=== PATIENT | female | born 1990 | race Caucasian/White ===

== ENCOUNTER 2024-02-13 13:21 | Inpatient (IN) | payer OTHER, SELFPAY ==
[2024-02-13 13:40] VITALS: BP 109/60; PULSE 86; RESP 12; TEMP 36.4; O2SAT 98
[2024-02-13 14:41] VITALS: BMI 21.0
--- NOTE | 2024-02-13 15:00 | PC.ADMIT ---
34 y/o female admitted to at 1335 on a CV from [facility] for depression and SI. Pt arrived to [facility] on 02/11 with her boyfriend with c/o of being cold, unhoused, and seeking fpc assistance. ED reported both appeared under the influence. Pt was treated for a laceration to left forearm, which pt initially stated she unintentional sustained after a hunting knife slipped while opening a package. Four steri strips were placed and pt started on Keflex. ED noted some somnolence and PA ordered a chest xray, however pt declined. Pt and her boyfriend were then discharged from ED. However pt then returned later in evening without her boyfriend requesting the chest xray and c/o ongoing SOB after being treated last year for pneumonia. Chest xray unremarkable. Pt then began to endorse SI and stated that laceration to left forearm may have been intentional. Pt has history of SIB with past cutting behaviors. Pt stated that she wanted help for her depression and self harm urges. Pt stated that she stopped taking her medications around ten days ago, had been abusing substances regularly, and had self harm thoughts for past several days. When pt arrived to , pt appeared sedated and had difficulty staying awake to answer questions. Pt reported she was tired from Cocaine. Pt also noted to have restarted all of her medications. Pt endorsed passive SI but denied active urges to harm self. Pt denied HI/AVH. Safety check showed numerous scars on bilateral arms from past cutting. Dressing removed from left forearm. Four steri strips intact and covered with new non-stick dressing and tape. Pt's bilateral hands and feet appeared edematous. Pt denied IV drug use, but stated I've been out in the cold. Pt reported that she consumed a sleeve a day of vodka and used Cocaine regularly. Utox positive for Cocaine, Benzodiazepine, and Buprenorphine. Pt has prescriptions that include Klonopin and Suboxone. Pt placed on CIWA protocol. Pt is a cigarette smoker and requested NRT. Pt declined Influenza vaccine. Pt placed on 15 minute checks.
[2024-02-13] MEDS: Acetaminophen 325 MG TABLET 650 MG PO (16:53)
[2024-02-13] MEDS: Gabapentin 400 MG CAPSULE 800 MG PO (16:53)
[2024-02-13] MEDS: Nicotine 21 MG PATCH.TD24 TRANSDERMA (16:53)
[2024-02-13] MEDS: cephALEXin 500 MG CAPSULE PO ×2 (16:53→21:48)
[2024-02-13 19:00] VITALS: BP 105/60; PULSE 55; RESP 12; TEMP 36.6; O2SAT 97
[2024-02-13 20:00] VITALS: BP 105/60; PULSE 55; TEMP 36.4; O2SAT 97
[2024-02-13] MEDS: Gabapentin 300 MG CAPSULE 600 MG PO (21:48)
[2024-02-14] VITALS (7 sets, daily range): BP systolic 97–126; BP diastolic 58–89; PULSE 62–123; RESP 16–17; TEMP 36.3–36.6; O2SAT 92–99
[2024-02-14] MEDS: LORazepam 1 MG TABLET PO ×5 (00:52→21:12)
[2024-02-14] MEDS: Acetaminophen 325 MG TABLET 650 MG PO ×2 (00:52→21:11)
[2024-02-14] MEDS: Nicotine 21 MG PATCH.TD24 TRANSDERMA (09:09)
[2024-02-14] MEDS: Topiramate 25 MG TABLET 50 MG PO (09:10)
[2024-02-14] MEDS: Gabapentin 300 MG CAPSULE 600 MG PO ×4 (09:10→21:12)
[2024-02-14] MEDS: Amphetamine Mixed Salts 20 MG TABLET PO ×2 (09:11→14:28)
[2024-02-14] MEDS: Lurasidone HCl 40 MG TABLET 120 MG PO (09:11)
[2024-02-14] MEDS: cephALEXin 500 MG CAPSULE PO ×4 (09:11→21:12)
[2024-02-14] MEDS: OLANZapine 5 MG TABLET PO (09:11)
[2024-02-14] MEDS: hydrOXYzine HCL 25 MG TABLET PO ×2 (09:16→15:55)
[2024-02-14] MEDS: cloNIDine HCL 0.2 MG TABLET PO ×3 (09:16→21:14)
[2024-02-14] MEDS: Buprenorphine/Naloxone 8/2 mg FILM 3 FILM BUCCAL (09:37)
--- NOTE | 2024-02-14 09:42 | P.HPPS_ITS ---
HPI Date of Service: 02/14/24 Chief Complaint: Decompensation Sources of Information: patient interviewed, chart reviewed and crisis/core team assessment reviewed HPI Subjective Notes: Knapp Warning, Conditional Voluntary and 3 Day Narrative: Patient is a 34-year-old female with history of depression, anxiety, PTSD, polysubstance abuse using cocaine, opiates and alcohol who presents for self- inflicted, superficial laceration to left arm due to depression, SI in the face of being off medications for 10 days, polysubstance abuse and homelessness. Patient is somewhat a limited historian due to being sedated having been restarted on all her medication in the ED, several of which are sedating. Patient reports that she and her boyfriend live in a tent; they came down to [place] to meet a mutual friend to have some fun and plan to stay at his house but got ; they ended up [place], trying to find a way to have some fun but ended up homeless, cold. She reports that she was off her medications for 10 days, having left her medications in the tent and on the street with her boyfriend, using cocaine and heroin, IV; she says she drinks 1-2 sleeves of vodka a day, she is not sure if she has ever had withdrawal seizures; she told the nurse that she was trading sex for drugs. Patient reports that it was so cold and so scary I just could not deal with it... I figured felt was going to anyway might as well just kill myself. and cut her arm; she self presented to the hospital. Patient appears to be now back on outpatient regimen and that being off Latuda contributed a lot to her depression; communications writer explained will be lowering doses due to her current sedation (though sedated throughout the day, patient has also been up in/out of her room, eating meals). She denies AVH; endorses history of possibly manic episodes during which time she is talking a lot and her mind is racing, needing less sleep, but they only seem to last for 2 days. Patient would like help getting into a program. Past Psychiatric History: History of psychiatric admissions Medical Evaluation Reviewed: Hospitalist Monse Pending COUNT INCLUDES [facility] Medical History Alcohol use disorder Opioid use Cocaine use disorder PTSD (post-traumatic stress disorder) MDD (major depressive disorder), recurrent severe, without psychosis Homeless Diagnostics Vital Signs (24Hr): Vital Signs - 24 hr 02/13/24 13:40 02/13/24 19:00 02/13/24 20:00 Temperature 97.6 F 97.8 F 97.5 F Pulse Rate 86 55 55 Respiratory Rate 12 12 Blood Pressure 109/60 105/60 105/60 Pulse Oximetry 98 97 97 Oxygen Delivery Method Room Air Room Air Room Air 02/14/24 00:05 02/14/24 04:05 02/14/24 08:41 Temperature 97.8 F 97.9 F 97.4 F Pulse Rate 62 86 94 Respiratory Rate 17 Blood Pressure 97/67 114/76 101/60 Pulse Oximetry 92 99 99 Oxygen Delivery Method Room Air Room Air Room Air BMI result Body Mass Index 21.0 Labs 02/14/24 11:28 Meds/Allergies Meds Home Medications ?Medication ?Instructions ?Recorded ?Confirmed ?Type buprenorphine 8 mg-naloxone 2 mg 3 film buccal DAILY 02/13/24 02/13/24 History sublingual film (Suboxone) cephalexin 500 mg capsule 500 mg PO QID 02/13/24 02/13/24 History clonazepam 0.5 mg disintegrating 0.5 mg PO BID 02/13/24 02/13/24 History tablet clonidine HCl 0.2 mg tablet 0.2 mg TID PRN Anxiety 02/13/24 02/13/24 History dextroamphetamine-amphetamine 20 20 mg PO BID 02/13/24 02/13/24 History mg tablet (Adderall) gabapentin 800 mg tablet 800 mg QID 02/13/24 02/13/24 History lurasidone 120 mg tablet (Latuda) 120 mg PO DAILY 02/13/24 02/13/24 History olanzapine 5 mg tablet 5 mg PO DAILY 02/13/24 02/13/24 History topiramate 50 mg tablet (Topamax) 50 mg PO DAILY 02/13/24 02/13/24 History Allergies Allergies Allergy/AdvReac Type Severity Reaction Status Date / Time No Known Allergies Allergy Verified 02/13/24 14:42 Mental Status Exam Mental Status Exam Narrative: Pt is drowsy but able to be woken and then alert and oriented; behavior is drowsy, not uncooperative but with limited participation in interview; calm; patient is not in distress; dressed in casual attire, disheveled; mood is described as depressed...anxious and affect congruent; eye contact limited; Speech is soft, slowed; psychomotor retardation present; thought process is concrete, goal directed; Thought content is on tx; no delusional thinking expressed; intermittent SI; no HI. Denies AVH; does not appear to be internally preoccupied Patients insight and judgment impaired Assessment & Plan Assessment & Plan (1) MDD (major depressive disorder), recurrent severe, without psychosis: Status: Acute Code(s): F33.2 - Major depressive disorder, recurrent severe without psychotic features (2) PTSD (post-traumatic stress disorder): Status: Acute Code(s): F43.10 - Post-traumatic stress disorder, unspecified (3) Cocaine use disorder: Status: Acute Code(s): F14.10 - Cocaine abuse, uncomplicated (4) Opioid use: Status: Acute Code(s): F11.90 - Opioid use, unspecified, uncomplicated (5) Alcohol use disorder: Status: Acute Code(s): F10.90 - Alcohol use, unspecified, uncomplicated (6) Homeless: Status: Acute Code(s): Z59.00 - Homelessness unspecified Plan Patient is a 34-year-old female with history of depression, anxiety, PTSD, polysubstance abuse using cocaine, opiates and alcohol who presents for self- inflicted, superficial laceration to left arm due to depression, SI in the face of being off medications for 10 days, polysubstance abuse and homelessness. Patient is somewhat a limited historian due to being sedated having been restarted on all her medication in the ED, several of which are sedating. Patient reports that she and her boyfriend live in a tent; they came down to [place] to meet a mutual friend to have some fun and plan to stay at his house but got ; they ended up [place], trying to find a way to have some fun but ended up homeless, cold. She reports that she was off her medications for 10 days, having left her medications in the tent and on the street with her boyfriend, using cocaine and heroin, IV; she says she drinks 1-2 sleeves of vodka a day, she is not sure if she has ever had withdrawal seizures; she told the nurse that she was trading sex for drugs. Patient reports that it was so cold and so scary I just could not deal with it... I figured felt was going to anyway might as well just kill myself. and cut her arm; she self presented to the hospital. Patient appears to be now back on outpatient regimen and that being off Latuda contributed a lot to her depression; communications writer explained will be lowering doses due to her current sedation (though sedated throughout the day, patient has also been up in/out of her room, eating meals). She denies AVH; endorses history of possibly manic episodes during which time she is talking a lot and her mind is racing, needing less sleep, but they only seem to last for 2 days. Patient would like help getting into a program. Formulation/clinical reasoning: Patient was suicidal and self-harm in the community; currently a limited historian. Will continue home medications but will modify them due to sedation; patient also on controlled substances which will have to be discussed and considered; checked with mass Pat and patient does have prescriptions for these. Patient on 2 antipsychotics, Latuda and low-dose Zyprexa 5 mg daily (says started for anxiety; not sure if she needs both). Will have to further assess and bipolar will remain a rule out -bilateral hands both swollen; patient says just started the other day; very possibly due to having been restarted on high dose of gabapentin -will order STD testing per patient's request and given exposures Plan: CV Q 15 minutes checks CIWA with p.r.n. Ativan Continue Keflex 500 mg q.i.d. for superficial laceration Continue gabapentin but will lowered to 600 mg q.i.d. due to both sedation and bilateral hand swelling (was restarted on 800 mg q.i.d. in the ED) Continue Suboxone 8/2 mg t.i.d. HOLD Klonopin 0.5 mg b.i.d.; HOLDING DUE TO SEDATION Continue Latuda 120 mg daily Continue Zyprexa 5 mg daily Continue Topamax 50 mg daily Continue Adderall immediate release 20 mg b.i.d. 0 900, 1500 Patient educated on: diagnosis, medication risk/benefits, substance abuse and medical condition Informed Consent: understands and further education needed Reason for continued inpatient stay Substantial Risk for: rapid decompensation Statement Statement: I have reviewed the history and physical and performed a pertinent examination on my patient. No changes have occurred unless specified. If the History and Physical was not performed prior to admission, the Hospitalist's service will be consulted for completing the admission physical. Time Spent With Patient Time: Total time managing care of this patient today ____ minutes.
--- NOTE | 2024-02-14 12:04 | PM.IMHP ---
History of Present Illness Date of Service: 02/14/24 Chief Complaint: H and P 34-year-old female with a history of substance abuse, admitted for inpatient psychiatric care for treatment of depression and self-harm. She presents with a left arm laceration, initially claimed to be accidental but later stated to be intentional. She reports no acute medical issues (fever, chills, sob, chest pain, or other) at this time Review of Systems Review of Systems: Gen: no fever Resp: no sob, no cough CV: no chest, no SEAMAN, no leg edema GI: No n/v, no abd pain Neuro: No confusion, did not report si at the time of eval Yes all other systems are reviewed and are negative [facility] Medical History Homeless Social History Household Members: None Housing: Homeless Do you presently have visiting nurse or other home services: No Patient Tobacco Use Status: Current everyday Tobacco user Tobacco use type: Cigarette Cigarette Packs Per Day: 1 Cigarettes Per Day: 20.0 Smoked in Last 30 Days: Yes Patient Interested in Nicotine Replacement: Yes Use of substances other than those prescribed or required for medical reasons: Yes Substance Use Type: Crack/Cocaine and Prescription Drugs Substance Use Frequency: Chronic Longstanding Last Used Substance: Just Prior to Admission Currently Displaying Signs/Symptoms of Drug Intoxication Withdrawal: No Advance Directives: No Advance Directives Information Provided: Yes Do you have thoughts of harming others: None Do you have a plan to hurt others: No Plan Recently lost weight without trying: Unsure Nutrition Risks: No Nutritional Risk Patient : No : No Meds Allergies Allergy/AdvReac Type Severity Reaction Status Date / Time No Known Allergies Allergy Verified 02/13/24 14:42 Active Medications: Current Medications Acetaminophen (Acetaminophen 325 Mg Tablet) 650 mg PO Q6H PRN PRN Reason: Headache/Pain Mild Scale (1-3) Last Admin: 02/14/24 00:52 Dose: 650 mg Al Hydroxide/Mg Hydroxide (Magnesium Hydrox/Alum Hydrox 30 Ml Oral.Susp) 30 ml PO Q6H PRN PRN Reason: Heartburn/Nausea Amphetamine/Dextroamphetamine (Amphetamine Mixed Salts 20 Mg Tablet) 20 mg PO BID@0900,1500 CHELY Last Admin: 02/14/24 09:11 Dose: 20 mg Buprenorphine/Naloxone (Buprenorphine/Naloxone 8/2 Mg Film) 3 film BUCCAL DAILY CHELY Last Admin: 02/14/24 09:37 Dose: 3 film Cephalexin HCl (Cephalexin 500 Mg Capsule) 500 mg PO QID [facility] Last Admin: 02/14/24 09:11 Dose: 500 mg Clonazepam (Clonazepam 0.5 Mg Tablet) 0.5 mg PO BID CHELY Clonidine HCl (Clonidine Hcl 0.2 Mg Tablet) 0.2 mg PO TID PRN; Protocol PRN Reason: Anxiety Last Admin: 02/14/24 09:16 Dose: 0.2 mg Gabapentin (Gabapentin 300 Mg Capsule) 600 mg PO QID [facility] Last Admin: 02/14/24 09:10 Dose: 600 mg Hydroxyzine HCl (Hydroxyzine Hcl 25 Mg Tablet) 25 mg PO Q6H PRN PRN Reason: Anxiety Last Admin: 02/14/24 09:16 Dose: 25 mg Lorazepam (Lorazepam 1 Mg Tablet) 1 mg PO Q2H PRN PRN Reason: CIWA 6-10 Last Admin: 02/14/24 09:16 Dose: 1 mg Lorazepam (Lorazepam 1 Mg Tablet) 2 mg PO Q2H PRN PRN Reason: CIWA 11 and above Lurasidone HCl (Lurasidone Hcl 40 Mg Tablet) 120 mg PO DAILY [facility] Last Admin: 02/14/24 09:11 Dose: 120 mg Magnesium Hydroxide (Milk Of Magnesia 30 Ml Oral.Susp) 30 ml PO DAILY PRN PRN Reason: Constipation Nicotine (Nicotine 21 Mg Patch.Td24) 21 mg TRANSDERMA DAILY PRN PRN Reason: smoking cessation Last Admin: 02/14/24 09:09 Dose: 21 mg Nicotine Polacrilex (Nicotine Polacrilex 2 Mg Gum) 4 mg BUCCAL Q2H PRN PRN Reason: Nicotine Cravings Olanzapine (Olanzapine 5 Mg Tablet) 5 mg PO TID PRN PRN Reason: agitation Olanzapine (Olanzapine 5 Mg Tablet) 5 mg PO DAILY [facility] Last Admin: 02/14/24 09:11 Dose: 5 mg Topiramate (Topiramate 25 Mg Tablet) 50 mg PO DAILY [facility] Last Admin: 02/14/24 09:10 Dose: 50 mg Trazodone HCl (Trazodone Hcl 50 Mg Tablet) 50 mg PO BEDTIME MRX1 PRN PRN Reason: Insomnia Home Medications ?Medication ?Instructions ?Recorded ?Confirmed ?Last Taken ?Type buprenorphine 8 mg-naloxone 2 mg 3 film buccal DAILY 02/13/24 02/13/24 02/13/24 09:30 History sublingual film (Suboxone) cephalexin 500 mg capsule 500 mg PO QID 02/13/24 02/13/24 02/13/24 09:30 History clonazepam 0.5 mg disintegrating 0.5 mg PO BID 02/13/24 02/13/24 02/13/24 09:30 History tablet clonidine HCl 0.2 mg tablet 0.2 mg TID PRN Anxiety 02/13/24 02/13/24 02/13/24 09:30 History dextroamphetamine-amphetamine 20 20 mg PO BID 02/13/24 02/13/24 02/13/24 09:30 History mg tablet (Adderall) gabapentin 800 mg tablet 800 mg QID 02/13/24 02/13/24 02/13/24 History lurasidone 120 mg tablet (Latuda) 120 mg PO DAILY 02/13/24 02/13/24 02/13/24 History 0930 olanzapine 5 mg tablet 5 mg PO DAILY 02/13/24 02/13/24 02/13/24 History topiramate 50 mg tablet (Topamax) 50 mg PO DAILY 02/13/24 02/13/24 02/13/24 09:30 History 25 Physical Exam Vital Signs and Narrative: Vital Signs: Last Vital Signs Temp 97.4 F 02/14/24 08:41 Pulse 94 02/14/24 08:41 Resp 17 02/14/24 08:41 BP 101/60 02/14/24 08:41 Pulse Ox 99 02/14/24 08:41 O2 Del Method Room Air 02/14/24 08:41 BMI result Body Mass Index 21.0 Const: Other: General: AO X 3, no acute distress Resp: CTA bilateral CVS: S1,S2,RRR GI: +BS, NT, no distention Skin: No rash, left forearm laceration, glue in place Neuro: motor grossly intact, CN 2 to 12 intact Psych: appropriate affect , reports no si Results Labs 02/14/24 11:28 Assessment and Plan (1) Homeless: Status: Acute (2) Depression: Status: Acute Plan 34-year-old female with a history of substance abuse, admitted for inpatient psychiatric care for treatment of depression and self-harm. She presents with a left arm laceration, initially claimed to be accidental but later stated to be intentional. She reports no acute medical issues at this time. Recommendations: Continue Current Care: Maintain current psychiatric treatment plan for depression and substance abuse. Continue monitoring for any changes in psychiatric status. Wound Care: Her left arm laceration does not show signs of infection at present but should be closely monitored for any signs of worsening (e.g., increased redness, warmth, swelling, discharge). Routine Labs: Routine labs being checked to rule out underlying medical issues. If any acute medical issues arise, ensure appropriate evaluation and management, and notify the medical team promptly. Safety and Monitoring: Continue close monitoring for any suicidal ideation or further self-harm behavior. Ensure a safe environment and support system is in place. Quality Stroke Does the patient have a stroke diagnosis?: No VTE Prior VTE?: No VTE Risk Level:: Medical - low VTE Device Contraindication: Treatment Not Indicated VTE Drug Contraindication: Treatment Not Indicated
[2024-02-14 12:14] LABS: Alanine Aminotransferase 8 U/L (0-31); Albumin Level 3.8 g/dL (3.5-5.0); Alkaline Phosphatase 48 U/L (39-117); Anion Gap 11 (12-20); Aspartate Amino Transferase 16 U/L (5-31); Bilirubin Total 0.2 mg/dL (0.0-1.0); Blood Urea Nitrogen 16 mg/dL (9-16); Calcium 8.9 mg/dL (8.4-10.2); Carbon Dioxide 24 mmol/L (22-29); Chloride 109 mmol/L (96-108); Cholesterol 145 mg/dL (<200); Creatinine Clr Calc Pharmacy 104.4; Estimated Average Glucose 100 mg/dL; Estimated Glomerular Filt Rate > 60; Glucose Fasting 121 mg/dL (60-99); HDL Cholesterol 48 mg/dL (>40); Hemoglobin A1C 99.2654 umol/L; Hemoglobin A1c % 5.1 % (<6.0); LDL Cholesterol Calculated 62 mg/dL (<100); Potassium 4.3 mmol/L (3.3-5.1); Sodium 140 mmol/L (135-145); Total Hemoglobin (HGBA1C) 3081.6702 umol/L; Total Protein 6.7 g/dL (6.5-8.0); Triglycerides 176 mg/dL (<150)
[2024-02-14 12:21] LABS: TSH reflex Free T4 3.39 uIU/mL (0.32-4.0)
[2024-02-15 00:40] VITALS: BP 103/58; PULSE 87; TEMP 36.8; O2SAT 97
[2024-02-15 08:00] VITALS: BP 95/57; PULSE 80; RESP 18; TEMP 36.2; O2SAT 97
[2024-02-15] MEDS: Nicotine 21 MG PATCH.TD24 TRANSDERMA (08:14)
[2024-02-15] MEDS: Gabapentin 300 MG CAPSULE 600 MG PO ×4 (08:14→21:27)
[2024-02-15] MEDS: Amphetamine Mixed Salts 20 MG TABLET PO ×2 (08:15→14:36)
[2024-02-15] MEDS: Lurasidone HCl 40 MG TABLET 120 MG PO (08:15)
[2024-02-15] MEDS: Topiramate 25 MG TABLET 50 MG PO (08:15)
[2024-02-15] MEDS: OLANZapine 5 MG TABLET PO ×2 (08:15→18:28)
[2024-02-15] MEDS: cephALEXin 500 MG CAPSULE PO ×4 (08:16→21:21)
[2024-02-15] MEDS: Buprenorphine/Naloxone 8/2 mg FILM 2 FILM BUCCAL (08:34)
--- NOTE | 2024-02-15 10:41 | P.PNPSI_ITS ---
Subjective Subjective Date of Service: 02/15/24 Reason For Visit: Decompensation Interim History: met with pt; discussed with team remains depressed, anxious; SI is wanning. Pt shares about struggles with substance abuse, last time sober for months at sober living program. Discussed trauma, struggles w/ anxiety; how benzo's make it harder to work through trauma. Mental Status Exam Mental Status Exam Narrative: Pt is alert and oriented; behavior is cooperative, more alert, friendly and calm; patient is not in distress; dressed in casual attire with unkempt hair but adequate hygiene; mood is described as depressed...anxious...little better and affect congruent, downcast, sad; eye contact appropriate; Speech is still soft, normal rate and prosody and not pressured; psychomotor retardation present; thought process is organized and goal directed; Thought content is on tx; otherwise pertinent to relevant topics and without any delusional content, paranoid ideations or grandiosity; Passive wish/SI waning; no HI; There is no evidence of perceptual disturbance. Patients insight and judgment impaired. Diagnostics Vital Signs (24Hr): Vital Signs - 24 hr 02/14/24 12:14 02/14/24 16:00 02/14/24 20:00 Temperature 97.7 F Pulse Rate 123 H 64 Respiratory Rate 16 Blood Pressure 107/58 L 111/70 126/89 Pulse Oximetry 98 92 Oxygen Delivery Method Room Air Room Air 02/14/24 21:14 02/15/24 00:40 02/15/24 08:00 Temperature 98.2 F 97.2 F Pulse Rate 87 80 Respiratory Rate 18 Blood Pressure 126/89 103/58 L 95/57 L Pulse Oximetry 97 97 Oxygen Delivery Method Room Air Room Air BMI result Body Mass Index 21.0 Labs 02/14/24 11:28 Labs: Laboratory Results - last 48 hr 02/14/24 11:28 Sodium 140 Potassium 4.3 Chloride 109 H Carbon Dioxide 24 Anion Gap 11 L BUN 16 Creatinine 0.72 Estim Creat Clear Calc 104.4 Estimated GFR > 60 Fasting Glucose 121 H Estimat Average Glucose 100 Hemoglobin A1c % 5.1 Calcium 8.9 Total Bilirubin 0.2 AST 16 ALT 8 Alkaline Phosphatase 48 Total Protein 6.7 Albumin 3.8 Triglycerides 176 H Cholesterol 145 LDL Cholesterol, Calc 62 HDL Cholesterol 48 TSH 3.39 Medications Medications Current Medications Acetaminophen (Acetaminophen 325 Mg Tablet) 650 mg PO Q6H PRN PRN Reason: Headache/Pain Mild Scale (1-3) Last Admin: 02/14/24 21:11 Dose: 650 mg Al Hydroxide/Mg Hydroxide (Magnesium Hydrox/Alum Hydrox 30 Ml Oral.Susp) 30 ml PO Q6H PRN PRN Reason: Heartburn/Nausea Amphetamine/Dextroamphetamine (Amphetamine Mixed Salts 20 Mg Tablet) 20 mg PO BID@0900,1500 [facility] Last Admin: 02/15/24 08:15 Dose: 20 mg Buprenorphine/Naloxone (Buprenorphine/Naloxone 8/2 Mg Film) 2 film BUCCAL DAILY [facility] Last Admin: 02/15/24 08:34 Dose: 2 film Buprenorphine/Naloxone (Buprenorphine/Naloxone 8/2 Mg Tab.Subl) 1 tab SUBLINGUAL BEDTIME [facility] Cephalexin HCl (Cephalexin 500 Mg Capsule) 500 mg PO QID [facility] Last Admin: 02/15/24 08:16 Dose: 500 mg Clonazepam (Clonazepam 0.5 Mg Tablet) 0.5 mg PO BID [facility] Clonidine HCl (Clonidine Hcl 0.2 Mg Tablet) 0.2 mg PO TID PRN; Protocol PRN Reason: Anxiety Last Admin: 02/14/24 21:14 Dose: 0.2 mg Gabapentin (Gabapentin 300 Mg Capsule) 600 mg PO QID [facility] Last Admin: 02/15/24 08:14 Dose: 600 mg Hydroxyzine HCl (Hydroxyzine Hcl 25 Mg Tablet) 25 mg PO Q6H PRN PRN Reason: Anxiety Last Admin: 02/14/24 15:55 Dose: 25 mg Lorazepam (Lorazepam 1 Mg Tablet) 1 mg PO Q2H PRN PRN Reason: CIWA 6-10 Last Admin: 02/14/24 21:12 Dose: 1 mg Lorazepam (Lorazepam 1 Mg Tablet) 2 mg PO Q2H PRN PRN Reason: CIWA 11 and above Lurasidone HCl (Lurasidone Hcl 40 Mg Tablet) 120 mg PO DAILY [facility] Last Admin: 02/15/24 08:15 Dose: 120 mg Magnesium Hydroxide (Milk Of Magnesia 30 Ml Oral.Susp) 30 ml PO DAILY PRN PRN Reason: Constipation Nicotine (Nicotine 21 Mg Patch.Td24) 21 mg TRANSDERMA DAILY PRN PRN Reason: smoking cessation Last Admin: 02/15/24 08:14 Dose: 21 mg Nicotine Polacrilex (Nicotine Polacrilex 2 Mg Gum) 4 mg BUCCAL Q2H PRN PRN Reason: Nicotine Cravings Olanzapine (Olanzapine 5 Mg Tablet) 5 mg PO TID PRN PRN Reason: agitation Olanzapine (Olanzapine 5 Mg Tablet) 5 mg PO DAILY [facility] Last Admin: 02/15/24 08:15 Dose: 5 mg Topiramate (Topiramate 25 Mg Tablet) 50 mg PO DAILY [facility] Last Admin: 02/15/24 08:15 Dose: 50 mg Trazodone HCl (Trazodone Hcl 50 Mg Tablet) 50 mg PO BEDTIME MRX1 PRN PRN Reason: Insomnia Allergies Allergies Allergy/AdvReac Type Severity Reaction Status Date / Time No Known Allergies Allergy Verified 02/13/24 14:42 Assessment & Plan Assessment & Plan (1) MDD (major depressive disorder), recurrent severe, without psychosis: Status: Acute Code(s): F33.2 - Major depressive disorder, recurrent severe without psychotic features (2) PTSD (post-traumatic stress disorder): Status: Acute Code(s): F43.10 - Post-traumatic stress disorder, unspecified (3) Cocaine use disorder: Status: Acute Code(s): F14.10 - Cocaine abuse, uncomplicated (4) Opioid use: Status: Acute Code(s): F11.90 - Opioid use, unspecified, uncomplicated (5) Alcohol use disorder: Status: Acute Code(s): F10.90 - Alcohol use, unspecified, uncomplicated (6) Homeless: Status: Acute Code(s): Z59.00 - Homelessness unspecified Plan Patient is a 34-year-old female with history of depression, anxiety, PTSD, polysubstance abuse using cocaine, opiates and alcohol who presents for self- inflicted, superficial laceration to left arm due to depression, SI in the face of being off medications for 10 days, polysubstance abuse and homelessness. Patient is somewhat a limited historian due to being sedated having been restarted on all her medication in the ED, several of which are sedating. Patient reports that she and her boyfriend live in a tent; they came down to [place] to meet a mutual friend to have some fun and plan to stay at his house but got ; they ended up [place], trying to find a way to have some fun but ended up homeless, cold. She reports that she was off her medications for 10 days, having left her medications in the tent and on the street with her boyfriend, using cocaine and heroin, IV; she says she drinks 1-2 sleeves of vodka a day, she is not sure if she has ever had withdrawal seizures; she told the nurse that she was trading sex for drugs. Patient reports that it was so cold and so scary I just could not deal with it... I figured felt was going to anyway might as well just kill myself. and cut her arm; she self presented to the hospital. Patient appears to be now back on outpatient regimen and that being off Latuda contributed a lot to her depression; brief writer explained will be lowering doses due to her current sedation (though sedated throughout the day, patient has also been up in/out of her room, eating meals). She denies AVH; endorses history of possibly manic episodes during which time she is talking a lot and her mind is racing, needing less sleep, but they only seem to last for 2 days. Patient would like help getting into a program. Formulation/clinical reasoning: Patient was suicidal and self-harm in the community; currently a limited historian. Will continue home medications but will modify them due to sedation; patient also on controlled substances which will have to be discussed and considered; checked with mass Pat and patient does have prescriptions for these. Patient on 2 antipsychotics, Latuda and low-dose Zyprexa 5 mg daily (says started for anxiety; not sure if she needs both). Will have to further assess and bipolar will remain a rule out -bilateral hands both swollen; patient says just started the other day; very possibly due to having been restarted on high dose of gabapentin -will order STD testing per patient's request and given exposures HOSPITAL COURSE: 02/14 depressed; SI lessening; struggling with ptsd; wants program; interested in [facility] -positive vega; starting clotrimazole -negative CT/NG/RPR; -Hep B/C/HIV pending -hand swelling resolving Plan: CV Q 15 minutes checks CIWA with p.r.n. Ativan Started Clotrimazole Continue Keflex 500 mg q.i.d. for superficial laceration Continue gabapentin but will lowered to 600 mg q.i.d. due to both sedation and bilateral hand swelling (was restarted on 800 mg q.i.d. in the ED) Continue Suboxone 8/2 mg t.i.d. HOLD Klonopin 0.5 mg b.i.d.; HOLDING DUE TO SEDATION Continue Latuda 120 mg daily Continue Zyprexa 5 mg daily Continue Topamax 50 mg daily Continue Adderall immediate release 20 mg b.i.d. 0 900, 1500 Patient educated on: diagnosis, medication risk/benefits, substance abuse and medical condition Informed Consent: understands Reason for continued inpatient stay Substantial Risk for: rapid decompensation Time Spent With Patient Time: Total time managing care of this patient today ____ minutes.
[2024-02-15 11:35] LABS: Bacterial Vaginosis PCR NEGATIVE (Negative); Candida Group PCR NOT DETECTED (Not Detect); Candida glab krusei PCR DETECTED (Not Detect); Trichomonas vaginalis PCR NOT DETECTED (Not Detect)
[2024-02-15 12:03] LABS: CT PCR NOT DETECTED (Not Detect.); NG PCR NOT DETECTED (Not Detect.)
[2024-02-15 12:05] VITALS: BP 128/73; PULSE 120; O2SAT 98
[2024-02-15] MEDS: hydrOXYzine HCL 25 MG TABLET PO ×2 (12:05→18:25)
[2024-02-15] MEDS: LORazepam 1 MG TABLET 2 MG PO (12:05)
[2024-02-15] MEDS: cloNIDine HCL 0.2 MG TABLET PO ×2 (12:06→18:25)
[2024-02-15 18:25] VITALS: BP 100/74
[2024-02-15] MEDS: Nicotine Polacrilex 2 MG GUM 4 MG BUCCAL (18:28)
[2024-02-15 19:34] VITALS: BP 100/74; PULSE 118; TEMP 37.1; O2SAT 97
[2024-02-15] MEDS: Buprenorphine/Naloxone 8/2 mg TAB.SUBL 1 TAB SUBLINGUAL (21:21)
[2024-02-16] MEDS: Acetaminophen 325 MG TABLET 650 MG PO (05:49)
[2024-02-16] MEDS: LORazepam 1 MG TABLET PO ×4 (05:50→15:43)
[2024-02-16 08:00] VITALS: BP 109/72; PULSE 115; RESP 15; TEMP 36.6; O2SAT 98
[2024-02-16 08:43] LABS: HBS Num1 89.88 mIU/mL (0-7.99); HBc Num1 9.14 S/CO (0.00-0.79); HBsAGNum1 0.48 S/CO (0.00-0.99); HIV AB/AG Nonreactive (Nonreactive); HIV Num 1 0.05 S/CO (0.00-0.99); Hepatitis B Surface Antigen Negative (Negative); ~HepC Num1 16.02 S/CO (0.00-0.79); ~Hepatitis B Surface Antibody REACTIVE (Nonreactive); ~Hepatitis C Antibody Reactive (Nonreactive)
[2024-02-16] MEDS: Topiramate 25 MG TABLET 50 MG PO (08:52)
[2024-02-16] MEDS: OLANZapine 5 MG TABLET PO (08:52)
[2024-02-16] MEDS: Gabapentin 300 MG CAPSULE 600 MG PO ×4 (08:52→20:55)
[2024-02-16] MEDS: Lurasidone HCl 40 MG TABLET 120 MG PO (08:52)
[2024-02-16] MEDS: cephALEXin 500 MG CAPSULE PO ×4 (08:53→20:54)
[2024-02-16] MEDS: Amphetamine Mixed Salts 20 MG TABLET PO ×2 (08:53→15:43)
[2024-02-16 09:18] LABS: HBc Num2 8.95 S/CO
[2024-02-16 09:19] LABS: HBc Num3 8.99 S/CO; Hepatitis B Core Antibody Reactive (Nonreactive)
[2024-02-16] MEDS: Buprenorphine/Naloxone 8/2 mg FILM 2 FILM BUCCAL (09:24)
--- NOTE | 2024-02-16 10:11 | P.PNPSI_ITS ---
Subjective Subjective Date of Service: 02/16/24 Reason For Visit: Decompensation Interim History: Met with patient; discussed with team Patient reports that depression is better; denies any SI. Says she still quite anxious however she says getting Ativan for alcohol withdrawal is about the equivalent of which she would get for clonazepam anyway. Discussed medications and patient wants to remain on current regimen. Earlier she was considering a substance abuse program, however today she put in a 3 day notice and said she does not want to program and instead will go live at her boyfriend's and pursue sobriety on her own. She also said she would make her own appointments with outpatient provider and does not need help with follow-up. Patient is concerned however that it is too early for refills on her medication with half a month's worth of medications back in her tent. Mental Status Exam Mental Status Exam Narrative: Pt is alert and oriented; behavior is cooperative, but will only superficially engage; calm and alert; patient is not in distress; dressed in casual attire with unkempt hair but adequate hygiene; mood is described as little better and affect congruent, brighter; eye contact appropriate; Speech is normal rate, volume and prosody; no psychomotor retardation present; thought process is organized and goal directed; Thought content is on tx, discharge; otherwise pertinent to relevant topics and without any delusional content, paranoid ideations or grandiosity; denies SI/HI; There is no evidence of perceptual disturbance. Patients insight and judgment fair Diagnostics Vital Signs (24Hr): Vital Signs - 24 hr 02/15/24 12:05 02/15/24 18:25 02/15/24 19:34 Temperature 98.8 F Pulse Rate 120 H 118 H Blood Pressure 128/73 100/74 100/74 Pulse Oximetry 98 97 Oxygen Delivery Method Room Air Room Air BMI result Body Mass Index 21.0 Labs 02/14/24 11:28 Labs: Laboratory Results - last 48 hr 02/14/24 02/14/24 02/15/24 11:28 16:40 07:18 Sodium 140 Potassium 4.3 Chloride 109 H Carbon Dioxide 24 Anion Gap 11 L BUN 16 Creatinine 0.72 Estim Creat Clear Calc 104.4 Estimated GFR > 60 Fasting Glucose 121 H Estimat Average Glucose 100 Hemoglobin A1c % 5.1 Calcium 8.9 Total Bilirubin 0.2 AST 16 ALT 8 Alkaline Phosphatase 48 Total Protein 6.7 Albumin 3.8 Triglycerides 176 H Cholesterol 145 LDL Cholesterol, Calc 62 HDL Cholesterol 48 TSH 3.39 Chlam trachomat DNA PCR NOT DETECTED Hep Bs Antigen Negative Hep Bs Antibody REACTIVE Hep B Core Total Ab Reactive Hep B Core IgM Ab Cancelled Hepatitis C Ab (EIA) Reactive H HIV 1&2 Ab/P24 Ag 4thGn Nonreactive N.gonorrhoeae DNA (PCR) NOT DETECTED T. vaginalis (PCR) NOT DETECTED Bact vaginosis (PCR) NEGATIVE C. krusei/glabrata (PCR) DETECTED A Martha group (PCR) NOT DETECTED Medications Medications Current Medications Acetaminophen (Acetaminophen 325 Mg Tablet) 650 mg PO Q6H PRN PRN Reason: Headache/Pain Mild Scale (1-3) Last Admin: 02/16/24 05:49 Dose: 650 mg Al Hydroxide/Mg Hydroxide (Magnesium Hydrox/Alum Hydrox 30 Ml Oral.Susp) 30 ml PO Q6H PRN PRN Reason: Heartburn/Nausea Amphetamine/Dextroamphetamine (Amphetamine Mixed Salts 20 Mg Tablet) 20 mg PO BID@0900,1500 [facility] Last Admin: 02/16/24 08:53 Dose: 20 mg Buprenorphine/Naloxone (Buprenorphine/Naloxone 8/2 Mg Film) 2 film BUCCAL DAILY [facility] Last Admin: 02/16/24 09:24 Dose: 2 film Buprenorphine/Naloxone (Buprenorphine/Naloxone 8/2 Mg Tab.Subl) 1 tab SUBLINGUAL BEDTIME [facility] Last Admin: 02/15/24 21:21 Dose: 1 tab Cephalexin HCl (Cephalexin 500 Mg Capsule) 500 mg PO QID [facility] Last Admin: 02/16/24 08:53 Dose: 500 mg Clonazepam (Clonazepam 0.5 Mg Tablet) 0.5 mg PO BID [facility] Clonidine HCl (Clonidine Hcl 0.2 Mg Tablet) 0.2 mg PO TID PRN; Protocol PRN Reason: Anxiety Last Admin: 02/15/24 18:25 Dose: 0.2 mg Clotrimazole (Clotrimazole 1 % Vaginal Cream 45 Gm Tube) 1 appl VAGINAL BEDTIME [facility] Stop: 02/21/24 21:01 Last Admin: 02/16/24 02:54 Dose: Not Given Gabapentin (Gabapentin 300 Mg Capsule) 600 mg PO QID [facility] Last Admin: 02/16/24 08:52 Dose: 600 mg Hydroxyzine HCl (Hydroxyzine Hcl 25 Mg Tablet) 25 mg PO Q6H PRN PRN Reason: Anxiety Last Admin: 02/15/24 18:25 Dose: 25 mg Lorazepam (Lorazepam 1 Mg Tablet) 1 mg PO Q2H PRN PRN Reason: CIWA 6-10 Last Admin: 02/16/24 08:52 Dose: 1 mg Lorazepam (Lorazepam 1 Mg Tablet) 2 mg PO Q2H PRN PRN Reason: CIWA 11 and above Last Admin: 02/15/24 12:05 Dose: 2 mg Lurasidone HCl (Lurasidone Hcl 40 Mg Tablet) 120 mg PO DAILY [facility] Last Admin: 02/16/24 08:52 Dose: 120 mg Magnesium Hydroxide (Milk Of Magnesia 30 Ml Oral.Susp) 30 ml PO DAILY PRN PRN Reason: Constipation Nicotine (Nicotine 21 Mg Patch.Td24) 21 mg TRANSDERMA DAILY PRN PRN Reason: smoking cessation Last Admin: 02/15/24 08:14 Dose: 21 mg Nicotine Polacrilex (Nicotine Polacrilex 2 Mg Gum) 4 mg BUCCAL Q2H PRN PRN Reason: Nicotine Cravings Last Admin: 02/15/24 18:28 Dose: 4 mg Olanzapine (Olanzapine 5 Mg Tablet) 5 mg PO TID PRN PRN Reason: agitation Last Admin: 02/15/24 18:28 Dose: 5 mg Olanzapine (Olanzapine 5 Mg Tablet) 5 mg PO DAILY [facility] Last Admin: 02/16/24 08:52 Dose: 5 mg Topiramate (Topiramate 25 Mg Tablet) 50 mg PO DAILY [facility] Last Admin: 02/16/24 08:52 Dose: 50 mg Trazodone HCl (Trazodone Hcl 50 Mg Tablet) 50 mg PO BEDTIME MRX1 PRN PRN Reason: Insomnia Allergies Allergies Allergy/AdvReac Type Severity Reaction Status Date / Time No Known Allergies Allergy Verified 02/13/24 14:42 Assessment & Plan Assessment & Plan (1) MDD (major depressive disorder), recurrent severe, without psychosis: Status: Acute Code(s): F33.2 - Major depressive disorder, recurrent severe without psychotic features (2) PTSD (post-traumatic stress disorder): Status: Acute Code(s): F43.10 - Post-traumatic stress disorder, unspecified (3) Cocaine use disorder: Status: Acute Code(s): F14.10 - Cocaine abuse, uncomplicated (4) Opioid use: Status: Acute Code(s): F11.90 - Opioid use, unspecified, uncomplicated (5) Alcohol use disorder: Status: Acute Code(s): F10.90 - Alcohol use, unspecified, uncomplicated (6) Homeless: Status: Acute Code(s): Z59.00 - Homelessness unspecified Plan Patient is a 34-year-old female with history of depression, anxiety, PTSD, polysubstance abuse using cocaine, opiates and alcohol who presents for self- inflicted, superficial laceration to left arm due to depression, SI in the face of being off medications for 10 days, polysubstance abuse and homelessness. Patient is somewhat a limited historian due to being sedated having been restarted on all her medication in the ED, several of which are sedating. Patient reports that she and her boyfriend live in a tent; they came down to [place] to meet a mutual friend to have some fun and plan to stay at his house but got ; they ended up [place], trying to find a way to have some fun but ended up homeless, cold. She reports that she was off her medications for 10 days, having left her medications in the tent and on the street with her boyfriend, using cocaine and heroin, IV; she says she drinks 1-2 sleeves of vodka a day, she is not sure if she has ever had withdrawal seizures; she told the nurse that she was trading sex for drugs. Patient reports that it was so cold and so scary I just could not deal with it... I figured felt was going to anyway might as well just kill myself. and cut her arm; she self presented to the hospital. Patient appears to be now back on outpatient regimen and that being off Latuda contributed a lot to her depression; rewriter explained will be lowering doses due to her current sedation (though sedated throughout the day, patient has also been up in/out of her room, eating meals). She denies AVH; endorses history of possibly manic episodes during which time she is talking a lot and her mind is racing, needing less sleep, but they only seem to last for 2 days. Patient would like help getting into a program. Formulation/clinical reasoning: Patient was suicidal and self-harm in the community; currently a limited historian. Will continue home medications but will modify them due to sedation; patient also on controlled substances which will have to be discussed and considered; checked with mass Pat and patient does have prescriptions for these. Patient on 2 antipsychotics, Latuda and low-dose Zyprexa 5 mg daily (says started for anxiety; not sure if she needs both). Will have to further assess and bipolar will remain a rule out -bilateral hands both swollen; patient says just started the other day; very possibly due to having been restarted on high dose of gabapentin -will order STD testing per patient's request and given exposures HOSPITAL COURSE: 02/14 depressed; SI lessening; struggling with ptsd; wants program; interested in [facility] -positive martha; starting clotrimazole -negative CT/NG/RPR/HIV -hand swelling resolving 02/15 Patient reports that depression is better; denies any SI. Says she still quite anxious however she says getting Ativan for alcohol withdrawal is about the equivalent of which she would get for clonazepam anyway. Discussed medications and patient wants to remain on current regimen. Earlier she was considering a substance abuse program, however today she put in a 3 day notice and said she does not want to program and instead will go live at her boyfriend's and pursue sobriety on her own. She also said she would make her own appointments with outpatient provider and does not need help with follow-up. Patient is concerned however that it is too early for refills on her medication with half a month's worth of medications back in her tent. Plan: CV Q 15 minutes checks -Hep C reactive; getting viral load CIWA with p.r.n. Ativan Started Clotrimazole (reviewed with ID) Continue Keflex 500 mg q.i.d. for superficial laceration Continue gabapentin but will lowered to 600 mg q.i.d. due to both sedation and bilateral hand swelling (was restarted on 800 mg q.i.d. in the ED) Continue Suboxone 8/2 mg t.i.d. HOLD Klonopin 0.5 mg b.i.d.; will not restart during this admission Continue Latuda 120 mg daily Continue Zyprexa 5 mg daily Continue Topamax 50 mg daily Continue Adderall immediate release 20 mg b.i.d. 0 900, 1500 Patient educated on: diagnosis, medication risk/benefits, substance abuse, therapeutic strategies and medical condition Informed Consent: understands Reason for continued inpatient stay Substantial Risk for: stable for discharge and rapid decompensation Time Spent With Patient Time: Total time managing care of this patient today ____ minutes.
--- NOTE | 2024-02-16 14:13 | MHC.RECOVRN ---
Addendum entered by Darlin Mejia 02/16/24 14:19: Pt also currently on Suboxone through provider in [place], [place]. Pt reports she is not returning [place] and is going to be staying in this area. Pt unsure of dc plans, mentioned retirement, CSS, and boyfriend's apartment as possibilities. Pt needs to be connected to outpatient AUD/OUD provider, SW reed. Pt had reported interest in [facility], encouraged to discuss with outpatient provider. Original Note: AUDIT-C Brief Intervention Pt had positive screen for unhealthy alcohol use on admission, subsequently met with t/w to discuss alcohol use and recovery supports/options. This telegraphic typewriter mechanic met with patient to discuss current alcohol use and concerns related to increased risk of alcohol related problems.? Pt reports 10 nips vodka plus 2 12 oz beers daily x 2 months. Prior to that, pt had been in recovery x 4 months. Pt reports 4 months is the longest amount of time in recovery she has had. Discussed how alcohol use has impacted health, including negative impact on mental health. Withdrawal History: possible seizure last summer after abruptly discontinuing alcohol Treatment History: ATS x 25, CSS x 10, TSS x a couple Supports:?boyfriend and mom Discussed risk reduction strategies including drinking below the recommended limit. Provided pt with written resources including information on inpatient and outpatient treatment, YODIT, harm reduction, and recovery coaching. Pt is focused on living with her boyfriend and is not sure if she wants to continue inpatient [facility]YSTAL treatment. Pt provided with t/w contact information if questions or concerns arise. Denies other questions or concerns at this time.?
[2024-02-16 17:15] VITALS: BP 111/73
[2024-02-16] MEDS: cloNIDine HCL 0.2 MG TABLET PO (17:15)
[2024-02-16] MEDS: hydrOXYzine HCL 25 MG TABLET PO (17:15)
[2024-02-16 17:58] LABS: RPR Rapid Plasma Reagin NON-REACTIVE (NON-REACTIVE)
[2024-02-16 20:00] VITALS: BP 99/67; PULSE 101; RESP 18; TEMP 36.8; O2SAT 98
[2024-02-16] MEDS: Clotrimazole 1 % Vaginal Cream 45 GM TUBE 1 APPL VAGINAL (20:57)
[2024-02-16] MEDS: Buprenorphine/Naloxone 8/2 mg TAB.SUBL 1 TAB SUBLINGUAL (21:04)
[2024-02-17 08:00] VITALS: BP 102/58; PULSE 91; RESP 18; TEMP 36.8; O2SAT 98
[2024-02-17] MEDS: Gabapentin 300 MG CAPSULE 600 MG PO ×4 (08:21→19:53)
[2024-02-17] MEDS: Lurasidone HCl 40 MG TABLET 120 MG PO (08:21)
[2024-02-17] MEDS: Topiramate 25 MG TABLET 50 MG PO (08:21)
[2024-02-17] MEDS: cephALEXin 500 MG CAPSULE PO ×4 (08:21→19:55)
[2024-02-17] MEDS: OLANZapine 5 MG TABLET PO (08:21)
[2024-02-17] MEDS: Amphetamine Mixed Salts 20 MG TABLET PO ×2 (08:22→14:08)
[2024-02-17] MEDS: Buprenorphine/Naloxone 8/2 mg FILM 2 FILM BUCCAL (08:23)
[2024-02-17] MEDS: LORazepam 1 MG TABLET 2 MG PO (12:44)
[2024-02-17 12:45] VITALS: BP 129/72
[2024-02-17] MEDS: cloNIDine HCL 0.2 MG TABLET PO ×2 (12:45→19:53)
[2024-02-17 12:46] VITALS: BP 129/72; PULSE 118; RESP 20; TEMP 36.6; O2SAT 98
--- NOTE | 2024-02-17 14:49 | HO.PSYCHPN ---
Subjective Subjective Date of Service: 02/17/24 Reason For Visit: Decompensation Interim History: With patient; discussed with team Patient reports depression is better, no SI. Says anxiety is through the roof. She feels that withdrawal is mostly over. Acid Cutter agrees to restart clonazepam while on the unit but not post discharge. Patient says that she has all of her medications in her tent and that she will go back and get them, since they are too early to be refilled. Patient declined substance abuse treatment; instead she plans to discharge and go stay with her boyfriend. She also says she will make her own follow-up appointments Mental Status Exam Mental Status Exam Narrative: Pt is alert and oriented; behavior is cooperative, calm, superficially engaged; calm and alert; patient is not in distress; dressed in casual attire with unkempt hair but adequate hygiene; mood is described as little better and affect congruent, brighter; eye contact appropriate; Speech is normal rate, volume and prosody; no psychomotor retardation present; thought process is organized and goal directed; Thought content is on tx, discharge; otherwise pertinent to relevant topics and without any delusional content, paranoid ideations or grandiosity; denies SI/HI; There is no evidence of perceptual disturbance. Patients insight and judgment fair Diagnostics Vital Signs (24Hr): Vital Signs - 24 hr 02/16/24 17:15 02/16/24 20:00 02/17/24 08:00 Temperature 98.2 F 98.2 F Pulse Rate 101 H 91 Respiratory Rate 18 18 Blood Pressure 111/73 99/67 102/58 L Pulse Oximetry 98 98 Oxygen Delivery Method Room Air Room Air 02/17/24 12:45 02/17/24 12:46 Temperature 97.8 F Pulse Rate 118 H Respiratory Rate 20 Blood Pressure 129/72 129/72 Pulse Oximetry 98 Oxygen Delivery Method Room Air BMI result Body Mass Index 21.0 Labs 02/14/24 11:28 Labs: Laboratory Results - last 48 hr 02/15/24 02/15/24 02/17/24 07:18 07:19 11:39 RPR Titer TNP RPR NON-REACTIVE Hep Bs Antigen Negative Hep Bs Antibody REACTIVE Hep B Core Total Ab Reactive Hep B Core IgM Ab Cancelled Hepatitis C Ab (EIA) Reactive H Hep C Viral Load Hep C Viral Load Log Hepatitis C Genotype Cancelled HIV 1&2 Ab/P24 Ag 4thGn Nonreactive 02/17/24 11:49 RPR Titer RPR Hep Bs Antigen Hep Bs Antibody Hep B Core Total Ab Hep B Core IgM Ab Hepatitis C Ab (EIA) Hep C Viral Load Cancelled Hep C Viral Load Log Cancelled Hepatitis C Genotype HIV 1&2 Ab/P24 Ag 4thGn Medications Medications Current Medications Acetaminophen (Acetaminophen 325 Mg Tablet) 650 mg PO Q6H PRN PRN Reason: Headache/Pain Mild Scale (1-3) Last Admin: 02/16/24 05:49 Dose: 650 mg Al Hydroxide/Mg Hydroxide (Magnesium Hydrox/Alum Hydrox 30 Ml Oral.Susp) 30 ml PO Q6H PRN PRN Reason: Heartburn/Nausea Amphetamine/Dextroamphetamine (Amphetamine Mixed Salts 20 Mg Tablet) 20 mg PO BID@0900,1500 [facility] Last Admin: 02/17/24 14:08 Dose: 20 mg Buprenorphine/Naloxone (Buprenorphine/Naloxone 8/2 Mg Film) 2 film BUCCAL DAILY [facility] Last Admin: 02/17/24 08:23 Dose: 2 film Buprenorphine/Naloxone (Buprenorphine/Naloxone 8/2 Mg Tab.Subl) 1 tab SUBLINGUAL BEDTIME [facility] Last Admin: 02/16/24 21:04 Dose: 1 tab Cephalexin HCl (Cephalexin 500 Mg Capsule) 500 mg PO QID [facility] Last Admin: 02/17/24 12:40 Dose: 500 mg Clonidine HCl (Clonidine Hcl 0.2 Mg Tablet) 0.2 mg PO TID PRN; Protocol PRN Reason: Anxiety Last Admin: 02/17/24 12:45 Dose: 0.2 mg Clotrimazole (Clotrimazole 1 % Vaginal Cream 45 Gm Tube) 1 appl VAGINAL BEDTIME [facility] Stop: 02/21/24 21:01 Last Admin: 02/16/24 20:57 Dose: 1 appl Gabapentin (Gabapentin 300 Mg Capsule) 600 mg PO QID [facility] Last Admin: 02/17/24 12:40 Dose: 600 mg Hydroxyzine HCl (Hydroxyzine Hcl 25 Mg Tablet) 25 mg PO Q6H PRN PRN Reason: Anxiety Last Admin: 02/16/24 17:15 Dose: 25 mg Lorazepam (Lorazepam 1 Mg Tablet) 1 mg PO Q2H PRN PRN Reason: CIWA 6-10 Last Admin: 02/16/24 15:43 Dose: 1 mg Lorazepam (Lorazepam 1 Mg Tablet) 2 mg PO Q2H PRN PRN Reason: CIWA 11 and above Last Admin: 02/17/24 12:44 Dose: 2 mg Lurasidone HCl (Lurasidone Hcl 40 Mg Tablet) 120 mg PO DAILY [facility] Last Admin: 02/17/24 08:21 Dose: 120 mg Magnesium Hydroxide (Milk Of Magnesia 30 Ml Oral.Susp) 30 ml PO DAILY PRN PRN Reason: Constipation Nicotine (Nicotine 21 Mg Patch.Td24) 21 mg TRANSDERMA DAILY PRN PRN Reason: smoking cessation Last Admin: 02/15/24 08:14 Dose: 21 mg Nicotine Polacrilex (Nicotine Polacrilex 2 Mg Gum) 4 mg BUCCAL Q2H PRN PRN Reason: Nicotine Cravings Last Admin: 02/15/24 18:28 Dose: 4 mg Olanzapine (Olanzapine 5 Mg Tablet) 5 mg PO TID PRN PRN Reason: agitation Last Admin: 02/15/24 18:28 Dose: 5 mg Olanzapine (Olanzapine 5 Mg Tablet) 5 mg PO DAILY [facility] Last Admin: 02/17/24 08:21 Dose: 5 mg Topiramate (Topiramate 25 Mg Tablet) 50 mg PO DAILY [facility] Last Admin: 02/17/24 08:21 Dose: 50 mg Trazodone HCl (Trazodone Hcl 50 Mg Tablet) 50 mg PO BEDTIME MRX1 PRN PRN Reason: Insomnia Allergies Allergies Allergy/AdvReac Type Severity Reaction Status Date / Time No Known Allergies Allergy Verified 02/13/24 14:42 Assessment & Plan Assessment & Plan (1) MDD (major depressive disorder), recurrent severe, without psychosis: Status: Acute Code(s): F33.2 - Major depressive disorder, recurrent severe without psychotic features (2) PTSD (post-traumatic stress disorder): Status: Acute Code(s): F43.10 - Post-traumatic stress disorder, unspecified (3) Cocaine use disorder: Status: Acute Code(s): F14.10 - Cocaine abuse, uncomplicated (4) Opioid use: Status: Acute Code(s): F11.90 - Opioid use, unspecified, uncomplicated (5) Alcohol use disorder: Status: Acute Code(s): F10.90 - Alcohol use, unspecified, uncomplicated (6) Homeless: Status: Acute Code(s): Z59.00 - Homelessness unspecified Plan Patient is a 34-year-old female with history of depression, anxiety, PTSD, polysubstance abuse using cocaine, opiates and alcohol who presents for self-inflicted, superficial laceration to left arm due to depression, SI in the face of being off medications for 10 days, polysubstance abuse and homelessness. Patient is somewhat a limited historian due to being sedated having been restarted on all her medication in the ED, several of which are sedating. Patient reports that she and her boyfriend live in a tent; they came down to [place] to meet a mutual friend to have some fun and plan to stay at his house but got ; they ended up [place], trying to find a way to have some fun but ended up homeless, cold. She reports that she was off her medications for 10 days, having left her medications in the tent and on the street with her boyfriend, using cocaine and heroin, IV; she says she drinks 1-2 sleeves of vodka a day, she is not sure if she has ever had withdrawal seizures; she told the nurse that she was trading sex for drugs. Patient reports that it was so cold and so scary I just could not deal with it... I figured felt was going to anyway might as well just kill myself. and cut her arm; she self presented to the hospital. Patient appears to be now back on outpatient regimen and that being off Latuda contributed a lot to her depression; inspector automatic typewriter explained will be lowering doses due to her current sedation (though sedated throughout the day, patient has also been up in/out of her room, eating meals). She denies AVH; endorses history of possibly manic episodes during which time she is talking a lot and her mind is racing, needing less sleep, but they only seem to last for 2 days. Patient would like help getting into a program. Formulation/clinical reasoning: Patient was suicidal and self-harm in the community; currently a limited historian. Will continue home medications but will modify them due to sedation; patient also on controlled substances which will have to be discussed and considered; checked with mass Pat and patient does have prescriptions for these. Patient on 2 antipsychotics, Latuda and low-dose Zyprexa 5 mg daily (says started for anxiety; not sure if she needs both). Will have to further assess and bipolar will remain a rule out -bilateral hands both swollen; patient says just started the other day; very possibly due to having been restarted on high dose of gabapentin -will order STD testing per patient's request and given exposures HOSPITAL COURSE: 02/14 depressed; SI lessening; struggling with ptsd; wants program; interested in [facility] -positive vega; starting clotrimazole -negative CT/NG/RPR/HIV -hand swelling resolving 02/15 Patient reports that depression is better; denies any SI. Says she still quite anxious however she says getting Ativan for alcohol withdrawal is about the equivalent of which she would get for clonazepam anyway. Discussed medications and patient wants to remain on current regimen. Earlier she was considering a substance abuse program, however today she put in a 3 day notice and said she does not want to program and instead will go live at her boyfriend's and pursue sobriety on her own. She also said she would make her own appointments with outpatient provider and does not need help with follow-up. Patient is concerned however that it is too early for refills on her medication with half a month's worth of medications back in her tent. 02/16 Patient reports depression is better, no SI. Says anxiety is through the roof. She feels that withdrawal is mostly over. Acid Cutter agrees to restart clonazepam while on the unit but not post discharge. Patient says that she has all of her medications in her tent and that she will go back and get them, since they are too early to be refilled. Patient continues to decline substance abuse treatment; instead she plans to discharge and go stay with her boyfriend. She also says she will make her own follow-up appointments Plan: CV Q 15 minutes checks -Hep C reactive; getting viral load CIWA with p.r.n. Ativan Started Clotrimazole (reviewed with ID) Continue Keflex 500 mg q.i.d. for superficial laceration Continue gabapentin but will lowered to 600 mg q.i.d. due to both sedation and bilateral hand swelling (was restarted on 800 mg q.i.d. in the ED) Continue Suboxone 8/2 mg t.i.d. HOLD Klonopin 0.5 mg b.i.d.; will not restart during this admission Continue Latuda 120 mg daily Continue Zyprexa 5 mg daily Continue Topamax 50 mg daily Continue Adderall immediate release 20 mg b.i.d. 0 900, 1500 Patient educated on: diagnosis, medication risk/benefits, substance abuse and therapeutic strategies Informed Consent: understands Reason for continued inpatient stay Substantial Risk for: stable for discharge and rapid decompensation Time Spent With Patient Time: Total time managing care of this patient today ____ minutes.
[2024-02-17] MEDS: clonazePAM 0.5 MG TABLET PO (15:39)
[2024-02-17 19:53] VITALS: BP 114/72
[2024-02-17] MEDS: hydrOXYzine HCL 25 MG TABLET PO (19:53)
[2024-02-17] MEDS: Acetaminophen 325 MG TABLET 650 MG PO (19:54)
[2024-02-17] MEDS: Buprenorphine/Naloxone 8/2 mg TAB.SUBL 1 TAB SUBLINGUAL (19:55)
[2024-02-17] MEDS: Clotrimazole 1 % Vaginal Cream 45 GM TUBE 1 APPL VAGINAL (19:56)
[2024-02-17 20:00] VITALS: BP 114/72; PULSE 105; TEMP 36.9; O2SAT 97
[2024-02-18] MEDS: cephALEXin 500 MG CAPSULE PO ×4 (08:59→20:55)
[2024-02-18] MEDS: Gabapentin 300 MG CAPSULE 600 MG PO ×4 (08:59→20:55)
[2024-02-18] MEDS: Lurasidone HCl 40 MG TABLET 120 MG PO (08:59)
[2024-02-18] MEDS: clonazePAM 0.5 MG TABLET PO ×2 (09:00→13:43)
[2024-02-18] MEDS: Amphetamine Mixed Salts 20 MG TABLET PO ×2 (09:01→15:29)
[2024-02-18] MEDS: OLANZapine 5 MG TABLET PO ×2 (09:01→20:58)
[2024-02-18] MEDS: Topiramate 25 MG TABLET 50 MG PO (09:02)
[2024-02-18] MEDS: Buprenorphine/Naloxone 8/2 mg FILM 2 FILM BUCCAL (09:03)
[2024-02-18 10:29] VITALS: BP 100/55; PULSE 62; TEMP 36.5; O2SAT 97
[2024-02-18 18:15] VITALS: BP 110/70
[2024-02-18] MEDS: cloNIDine HCL 0.2 MG TABLET PO (18:15)
[2024-02-18] MEDS: hydrOXYzine HCL 25 MG TABLET PO (18:15)
[2024-02-18] MEDS: Nicotine Polacrilex 2 MG GUM 4 MG BUCCAL (18:29)
[2024-02-18 20:00] VITALS: BP 123/70; PULSE 125; TEMP 36.7; O2SAT 96
[2024-02-18] MEDS: Buprenorphine/Naloxone 8/2 mg TAB.SUBL 1 TAB SUBLINGUAL (20:55)
[2024-02-18] MEDS: Clotrimazole 1 % Vaginal Cream 45 GM TUBE 1 APPL VAGINAL (20:55)
[2024-02-18] MEDS: Acetaminophen 325 MG TABLET 650 MG PO (20:58)
--- NOTE | 2024-02-18 22:47 | P.PNPSI_ITS ---
Subjective Subjective Date of Service: 02/18/24 Reason For Visit: Decompensation Diagnostics Vital Signs (24Hr): Vital Signs - 24 hr 02/18/24 10:29 02/18/24 18:15 02/18/24 20:00 Temperature 97.7 F 98.0 F Pulse Rate 62 125 H Blood Pressure 100/55 L 110/70 123/70 Pulse Oximetry 97 96 Oxygen Delivery Method Room Air Room Air BMI result Body Mass Index 21.0 Labs 02/14/24 11:28 Labs: Laboratory Results - last 48 hr 02/15/24 02/17/24 02/17/24 07:19 11:39 11:49 RPR Titer TNP Hep C Viral Load Cancelled Hep C Viral Load Log Cancelled Hepatitis C Genotype Cancelled Medications Medications Current Medications Acetaminophen (Acetaminophen 325 Mg Tablet) 650 mg PO Q6H PRN PRN Reason: Headache/Pain Mild Scale (1-3) Last Admin: 02/18/24 20:58 Dose: 650 mg Al Hydroxide/Mg Hydroxide (Magnesium Hydrox/Alum Hydrox 30 Ml Oral.Susp) 30 ml PO Q6H PRN PRN Reason: Heartburn/Nausea Amphetamine/Dextroamphetamine (Amphetamine Mixed Salts 20 Mg Tablet) 20 mg PO BID@0900,1500 [facility] Last Admin: 02/18/24 15:29 Dose: 20 mg Buprenorphine/Naloxone (Buprenorphine/Naloxone 8/2 Mg Film) 2 film BUCCAL DAILY [facility] Last Admin: 02/18/24 09:03 Dose: 2 film Buprenorphine/Naloxone (Buprenorphine/Naloxone 8/2 Mg Tab.Subl) 1 tab SUBLINGUAL BEDTIME [facility] Last Admin: 02/18/24 20:55 Dose: 1 tab Cephalexin HCl (Cephalexin 500 Mg Capsule) 500 mg PO QID [facility] Last Admin: 02/18/24 20:55 Dose: 500 mg Clonazepam (Clonazepam 0.5 Mg Tablet) 0.5 mg PO BID@0900,1400 [facility] Last Admin: 02/18/24 13:43 Dose: 0.5 mg Clonidine HCl (Clonidine Hcl 0.2 Mg Tablet) 0.2 mg PO TID PRN; Protocol PRN Reason: Anxiety Last Admin: 02/18/24 18:15 Dose: 0.2 mg Clotrimazole (Clotrimazole 1 % Vaginal Cream 45 Gm Tube) 1 appl VAGINAL BEDTIME [facility] Stop: 02/21/24 21:01 Last Admin: 02/18/24 20:55 Dose: 1 appl Gabapentin (Gabapentin 300 Mg Capsule) 600 mg PO QID [facility] Last Admin: 02/18/24 20:55 Dose: 600 mg Hydroxyzine HCl (Hydroxyzine Hcl 25 Mg Tablet) 25 mg PO Q6H PRN PRN Reason: Anxiety Last Admin: 02/18/24 18:15 Dose: 25 mg Lurasidone HCl (Lurasidone Hcl 40 Mg Tablet) 120 mg PO DAILY [facility] Last Admin: 02/18/24 08:59 Dose: 120 mg Magnesium Hydroxide (Milk Of Magnesia 30 Ml Oral.Susp) 30 ml PO DAILY PRN PRN Reason: Constipation Nicotine (Nicotine 21 Mg Patch.Td24) 21 mg TRANSDERMA DAILY PRN PRN Reason: smoking cessation Last Admin: 02/15/24 08:14 Dose: 21 mg Nicotine Polacrilex (Nicotine Polacrilex 2 Mg Gum) 4 mg BUCCAL Q2H PRN PRN Reason: Nicotine Cravings Last Admin: 02/18/24 18:29 Dose: 4 mg Olanzapine (Olanzapine 5 Mg Tablet) 5 mg PO TID PRN PRN Reason: agitation Last Admin: 02/18/24 20:58 Dose: 5 mg Olanzapine (Olanzapine 5 Mg Tablet) 5 mg PO DAILY [facility] Last Admin: 02/18/24 09:01 Dose: 5 mg Topiramate (Topiramate 25 Mg Tablet) 50 mg PO DAILY [facility] Last Admin: 02/18/24 09:02 Dose: 50 mg Trazodone HCl (Trazodone Hcl 50 Mg Tablet) 50 mg PO BEDTIME MRX1 PRN PRN Reason: Insomnia Allergies Allergies Allergy/AdvReac Type Severity Reaction Status Date / Time No Known Allergies Allergy Verified 02/13/24 14:42 Assessment & Plan Assessment & Plan (1) MDD (major depressive disorder), recurrent severe, without psychosis: Status: Acute Code(s): F33.2 - Major depressive disorder, recurrent severe without psychotic features (2) PTSD (post-traumatic stress disorder): Status: Acute Code(s): F43.10 - Post-traumatic stress disorder, unspecified (3) Cocaine use disorder: Status: Acute Code(s): F14.10 - Cocaine abuse, uncomplicated (4) Opioid use: Status: Acute Code(s): F11.90 - Opioid use, unspecified, uncomplicated (5) Alcohol use disorder: Status: Acute Code(s): F10.90 - Alcohol use, unspecified, uncomplicated (6) Homeless: Status: Acute Code(s): Z59.00 - Homelessness unspecified Plan Patient is a 34-year-old female with history of depression, anxiety, PTSD, polysubstance abuse using cocaine, opiates and alcohol who presents for self- inflicted, superficial laceration to left arm due to depression, SI in the face of being off medications for 10 days, polysubstance abuse and homelessness. Patient is somewhat a limited historian due to being sedated having been restarted on all her medication in the ED, several of which are sedating. Patient reports that she and her boyfriend live in a tent; they came down to [place] to meet a mutual friend to have some fun and plan to stay at his house but got ; they ended up [place], trying to find a way to have some fun but ended up homeless, cold. She reports that she was off her medications for 10 days, having left her medications in the tent and on the street with her boyfriend, using cocaine and heroin, IV; she says she drinks 1-2 sleeves of vodka a day, she is not sure if she has ever had withdrawal seizures; she told the nurse that she was trading sex for drugs. Patient reports that it was so cold and so scary I just could not deal with it... I figured felt was going to anyway might as well just kill myself. and cut her arm; she self presented to the hospital. Patient appears to be now back on outpatient regimen and that being off Latuda contributed a lot to her depression; advertising writer explained will be lowering doses due to her current sedation (though sedated throughout the day, patient has also been up in/out of her room, eating meals). She denies AVH; endorses history of possibly manic episodes during which time she is talking a lot and her mind is racing, needing less sleep, but they only seem to last for 2 days. Patient would like help getting into a program. Formulation/clinical reasoning: Patient was suicidal and self-harm in the community; currently a limited historian. Will continue home medications but will modify them due to sedation; patient also on controlled substances which will have to be discussed and considered; checked with mass Pat and patient does have prescriptions for these. Patient on 2 antipsychotics, Latuda and low-dose Zyprexa 5 mg daily (says started for anxiety; not sure if she needs both). Will have to further assess and bipolar will remain a rule out -bilateral hands both swollen; patient says just started the other day; very possibly due to having been restarted on high dose of gabapentin -will order STD testing per patient's request and given exposures HOSPITAL COURSE: 02/14 depressed; SI lessening; struggling with ptsd; wants program; interested in [facility] -positive vega; starting clotrimazole -negative CT/NG/RPR/HIV -hand swelling resolving 02/15 Patient reports that depression is better; denies any SI. Says she still quite anxious however she says getting Ativan for alcohol withdrawal is about the equivalent of which she would get for clonazepam anyway. Discussed medications and patient wants to remain on current regimen. Earlier she was considering a substance abuse program, however today she put in a 3 day notice and said she does not want to program and instead will go live at her boyfriend's and pursue sobriety on her own. She also said she would make her own appointments with outpatient provider and does not need help with follow-up. Patient is concerned however that it is too early for refills on her medication with half a month's worth of medications back in her tent. 02/16 Patient reports depression is better, no SI. Says anxiety is through the roof. She feels that withdrawal is mostly over. Hospitalist Medical Director agrees to restart clonazepam while on the unit but not post discharge. Patient says that she has all of her medications in her tent and that she will go back and get them, since they are too early to be refilled. Patient continues to decline substance abuse treatment; instead she plans to discharge and go stay with her boyfriend. She also says she will make her own follow-up appointments Plan: CV Q 15 minutes checks -Hep C reactive; getting viral load CIWA with p.r.n. Ativan Started Clotrimazole (reviewed with ID) Continue Keflex 500 mg q.i.d. for superficial laceration Continue gabapentin but will lowered to 600 mg q.i.d. due to both sedation and bilateral hand swelling (was restarted on 800 mg q.i.d. in the ED) Continue Suboxone 8/2 mg t.i.d. HOLD Klonopin 0.5 mg b.i.d.; will not restart during this admission Continue Latuda 120 mg daily Continue Zyprexa 5 mg daily Continue Topamax 50 mg daily Continue Adderall immediate release 20 mg b.i.d. 0 900, 1500 Time Spent With Patient Time: Total time managing care of this patient today ____ minutes.
[2024-02-19 08:00] VITALS: BP 107/58; PULSE 85; RESP 20; TEMP 36.9; O2SAT 98
[2024-02-19] MEDS: Topiramate 25 MG TABLET 50 MG PO (08:27)
[2024-02-19] MEDS: Lurasidone HCl 40 MG TABLET 120 MG PO (08:28)
[2024-02-19] MEDS: cephALEXin 500 MG CAPSULE PO ×2 (08:28→12:18)
[2024-02-19] MEDS: clonazePAM 0.5 MG TABLET PO (08:28)
[2024-02-19] MEDS: Gabapentin 300 MG CAPSULE 600 MG PO ×2 (08:28→12:18)
[2024-02-19] MEDS: Amphetamine Mixed Salts 20 MG TABLET PO (08:28)
[2024-02-19] MEDS: OLANZapine 5 MG TABLET PO (08:28)
[2024-02-19] MEDS: Buprenorphine/Naloxone 8/2 mg FILM 2 FILM BUCCAL (08:46)
[2024-02-19] MEDS: Naloxone HCl Nasal TAKE HOME 4 MG SPRAY 8 MG NOSTRILALT (09:06)
[2024-02-19 11:09] VITALS: BP 111/82
[2024-02-19] MEDS: cloNIDine HCL 0.2 MG TABLET PO (11:09)
[2024-02-19] MEDS: hydrOXYzine HCL 25 MG TABLET PO (11:09)
[2024-02-19] MEDS: Acetaminophen 325 MG TABLET 650 MG PO (11:09)
--- NOTE | 2024-02-19 11:32 | PM.PSYDC ---
DS: Providers Provider Date of Service: 02/19/24 Date of admission: 02/13/24 13:21 Date of discharge: 02/19/24 Primary care physician: Unknown Physician Attending physician on admission: Jeffry Gordon Consults: 02/13/24 14:44 Consult to Hospitalist Routine Comment: Consulting Provider[place] [facility] Reason For Exam: admission phsycial 02/13/24 17:50 Addiction Medicine Routine Consulting Provider: Addiction Covering Reason for consultation: ETOH and Cocaine use 02/15/24 22:12 Addiction Medicine Routine Consulting Provider: Addiction Covering Reason for consultation: interested in sublicade Attending physician on discharge: Jeffry Gordon DS: Diagnosis Discharge Diagnosis (1) MDD (major depressive disorder), recurrent severe, without psychosis: Status: Acute (2) PTSD (post-traumatic stress disorder): Status: Acute (3) Cocaine use disorder: Status: Acute (4) Opioid use: Status: Acute (5) Alcohol use disorder: Status: Acute (6) Homeless: Status: Acute DS: Medications Discharge Medications Home Medications: Home Medications ?Medication ?Instructions ?Recorded ?Confirmed clonazepam 0.5 mg disintegrating 0.5 mg PO BID 02/13/24 02/13/24 tablet clonidine HCl 0.2 mg tablet 0.2 mg TID PRN Anxiety 02/13/24 02/13/24 dextroamphetamine-amphetamine 20 20 mg PO BID 02/13/24 02/13/24 mg tablet (Adderall) gabapentin 800 mg tablet 800 mg QID 02/13/24 02/13/24 lurasidone 120 mg tablet (Latuda) 120 mg PO DAILY 02/13/24 02/13/24 olanzapine 5 mg tablet 5 mg PO DAILY 02/13/24 02/13/24 topiramate 50 mg tablet (Topamax) 50 mg PO DAILY 02/13/24 02/13/24 Previous Rx's ?Medication ?Instructions ?Recorded buprenorphine 8 mg-naloxone 2 mg 2 film buccal DAILY #0 ea 02/18/24 sublingual film (Suboxone) buprenorphine 8 mg-naloxone 2 mg 1 tab sublingual BEDTIME #0 tabs 02/18/24 sublingual tablet cephalexin 500 mg capsule 500 mg PO QID 5 days #20 caps 02/18/24 clotrimazole 1 % vaginal cream 1 appl vaginal BEDTIME 5 days #45 12/11/24 grams hydroxyzine HCl 25 mg tablet 25 mg PO Q6H PRN Anxiety 30 days 02/18/24 #60 tabs Data Data Completed and Pending Completed studies during hospitalization [Text1]: 02/14/24 02/14/24 02/15/24 11:28 16:40 07:18 Sodium 140 Potassium 4.3 Chloride 109 H Carbon Dioxide 24 Anion Gap 11 L BUN 16 Creatinine 0.72 Estim Creat Clear Calc 104.4 Estimated GFR > 60 Fasting Glucose 121 H Estimat Average Glucose 100 Hemoglobin A1c % 5.1 Calcium 8.9 Total Bilirubin 0.2 AST 16 ALT 8 Alkaline Phosphatase 48 Total Protein 6.7 Albumin 3.8 Triglycerides 176 H Cholesterol 145 LDL Cholesterol, Calc 62 HDL Cholesterol 48 TSH 3.39 RPR Titer RPR Chlam trachomat DNA PCR NOT DETECTED Hep Bs Antigen Negative Hep Bs Antibody REACTIVE Hep B Core Total Ab Reactive Hep B Core IgM Ab Cancelled Hepatitis C Ab (EIA) Reactive H HCV RNA Genotype LiPA HCV RNA (PCR) IUs/ml HCV RNA PCR log IUs/ml Hepatitis C RNA Comment Hep C Viral Load Hep C Viral Load Log Hepatitis C Genotype HIV 1&2 Ab/P24 Ag 4thGn Nonreactive N.gonorrhoeae DNA (PCR) NOT DETECTED T. vaginalis (PCR) NOT DETECTED Bact vaginosis (PCR) NEGATIVE C. krusei/glabrata (PCR) DETECTED A Martha group (PCR) NOT DETECTED 02/15/24 02/17/24 02/17/24 07:19 11:39 11:49 Sodium Potassium Chloride Carbon Dioxide Anion Gap BUN Creatinine Estim Creat Clear Calc Estimated GFR Fasting Glucose Estimat Average Glucose Hemoglobin A1c % Calcium Total Bilirubin AST ALT Alkaline Phosphatase Total Protein Albumin Triglycerides Cholesterol LDL Cholesterol, Calc HDL Cholesterol TSH RPR Titer TNP RPR NON-REACTIVE Chlam trachomat DNA PCR Hep Bs Antigen Hep Bs Antibody Hep B Core Total Ab Hep B Core IgM Ab Hepatitis C Ab (EIA) HCV RNA Genotype LiPA Pending HCV RNA (PCR) IUs/ml Pending HCV RNA PCR log IUs/ml Pending Hepatitis C RNA Comment Pending Hep C Viral Load Cancelled Hep C Viral Load Log Cancelled Hepatitis C Genotype Cancelled HIV 1&2 Ab/P24 Ag 4thGn N.gonorrhoeae DNA (PCR) T. vaginalis (PCR) Bact vaginosis (PCR) C. krusei/glabrata (PCR) Martha group (PCR) DS: Summary Time Spent with Patient Time attestation: Total time managing care of this patient today ____ minutes. Discharge Plan Discharge Anticipated Discharge Date/Time: 02/19/24 12:00 Patient Disposition: Intermediate Discharge Diagnosis: Recurrent Major Depression PTSD Cocaine, Opiate, Alcohol Use Disorder Homelessness Referrals: Patricia Suh [Other] - [address] [facility] Patricia Suh, [facility] [Other] - 1 Week Psychiatry w [facility] in [place] [Other] - 02/19/24 11:40 am (Telehealth) Suboxone Appt at [facility] [Other] - 03/01/24 1:30 pm Discharge Medications: New clotrimazole 1 % Cream 1 appl vaginal BEDTIME 5 Days Qty: 45 0RF buprenorphine-naloxone 8-2 mg Tablet, Sublingual 1 tab sublingual BEDTIME Qty: 0 0RF buprenorphine-naloxone [Suboxone] 8-2 mg Film 2 film buccal DAILY Qty: 0 0RF hydroxyzine HCl 25 mg Tablet 25 mg PO Q6H PRN (Reason: Anxiety) 30 Days Qty: 60 0RF Continued olanzapine 5 mg Tablet 5 mg PO DAILY Patient Comments: [facility]23 clonidine HCl 0.2 mg Tablet 0.2 mg TID PRN (Reason: Anxiety) Patient Comments: [facility] - Last filled 02/03 gabapentin 800 mg Tablet 800 mg QID Patient Comments: [facility] 02/04 dextroamphetamine-amphetamine [Adderall] 20 mg Tablet 20 mg PO BID Patient Comments: Pt reports she takes at 0900 and 1500 Rx Instructions: administer doses at least 4-6 hours apart clonazepam 0.5 mg Tablet,Disintegrating 0.5 mg PO BID Patient Comments: [facility] 01/31 topiramate [Topamax] 50 mg Tablet 50 mg PO DAILY Patient Comments: [facility] - [facility] supply last filled 02/02 lurasidone [Latuda] 120 mg Tablet 120 mg PO DAILY Patient Comments: [facility] - [facility] last filled 02/05 Rx Instructions: must administer with food (at least 350 calories) cephalexin 500 mg Capsule 500 mg PO QID 5 Days Qty: 20 0RF Discontinued buprenorphine-naloxone [Suboxone] 8-2 mg Film 3 film BUCCAL DAILY Patient Comments: [facility] - last filled 02/02 Rx Instructions: place 1 film on inside of (each) cheek Discharge Orders: Discharge Order (Routine); Ordered 02/19/24 Ordered By: Briana Daniel Diet: Advance to usual diet Activity on Discharge: As tolerated Stand Alone Forms: Patient Portal Discharge page, Community Support Print Language: Divehi Care Plan Goals: Mood and Behavioral Stabilization Abstinence from Substance Use Health Concerns: Mood and Behavioral Stabilization Abstinence from Substance Use Hep C Plan of Treatment: Attend scheduled appointments Take medications as directed Assessment: No SI/HI/AH/VH or symptoms of acute amador or psychosis
[2024-02-19 13:13] LABS: HCV RNA PCR Qn <1.18 NOT DETECTED Log IU/mL (NOT DETECTED); HCV RNA PCR Qn <15 NOT DETECTED IU/mL (NOT DETECTED)
== END 2024-02-19 13:00 | disposition home or self-care (01) | DRG 751 ==
PROVIDERS: Admitting Provider Psychiatry & Neurology Psychiatry; Visit Provider Psychiatry & Neurology Psychiatry
DX: F33.2 Major depressive disorder, recurrent severe without psychotic features (principal); R45.851 Suicidal ideations; F11.20 Opioid dependence, uncomplicated; F19.10 Other psychoactive substance abuse, uncomplicated; F43.10 Post-traumatic stress disorder, unspecified; F14.10 Cocaine abuse, uncomplicated; F10.90 Alcohol use, unspecified, uncomplicated; Z91.51 Personal history of suicidal behavior; Z59.02 Unsheltered homelessness; Z79.899 Other long term (current) drug therapy
CPT/HCPCS: 0352U; 36415; 80053; 80061; 83036; 84443; 86592; 86704; 86706; 86803; 87340; 87389; 87491; 87522; 87591; 87902

== ENCOUNTER → 2024-02-13 13:21 | Outpatient (BNV) | payer OTHER, SELFPAY | PROVIDERS: Admitting Provider Psychiatry & Neurology Psychiatry; Visit Provider Psychiatry & Neurology Psychiatry | DX: F33.2 Major depressive disorder, recurrent severe without psychotic features (principal); F14.10 Cocaine abuse, uncomplicated; F11.90 Opioid use, unspecified, uncomplicated; F43.11 Post-traumatic stress disorder, acute | CPT/HCPCS: 90792; 99232 ==

== ENCOUNTER → 2024-02-13 13:21 | Outpatient (BNV) | payer OTHER, SELFPAY | PROVIDERS: Admitting Provider Psychiatry & Neurology Psychiatry; Visit Provider Internal Medicine | DX: Z00.8 Encounter for other general examination (principal) | CPT/HCPCS: 99499 ==

== ENCOUNTER 2024-02-21 12:36 | Inpatient (IN) | payer OTHER, SELFPAY ==
[2024-02-21 12:44] VITALS: BP 123/94; PULSE 98; RESP 20; TEMP 37; O2SAT 98; BMI 23.4
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
--- NOTE | 2024-02-21 13:00 | PC.NURSE ---
Pt comes in for
--- NOTE | 2024-02-21 13:04 | PC.NURSE ---
Pt comes in for SI/ETOH withdrawal. A/ox4, respirations even and unlabored, no increased wob/sob noted,abdomen soft, non-tender. Pt states she has not been taking her medications recently and has had a reoccurence of ETOH. Hx of ETOH withdrawal seizures. States she usually drinks a sleeve of vodka per day, last drink unknown time yesterday. Pt states SI but no plan. 1:1 sitter at bedside for safety. Plan for labs and UA, pt in agreement with plan. Pending CARE team assessment at this time. Call sher within reach, all needs met.
[2024-02-21 14:14] LABS: UPreg QC Valid YES
[2024-02-21 14:15] LABS: Appearance Urine Clear; Color Urine Yellow; Glucose Urine UA Negative (Negative); Leukocyte Esterase Urine Negative (Negative); Nitrite Urine Negative (Negative); PH 6.5 (5.0-9.0); Specific Gravity - Urine 1.015 (1.005-1.025); Urine Blood Negative (Negative); Urine Ketones Negative (Negative); Urine Protein Negative (Neg-Trace)
[2024-02-21] MEDS: LORazepam 1 MG TABLET 2 MG PO ×2 (14:15→20:58)
[2024-02-21 14:16] LABS: Urine Pregnancy NEGATIVE (NEGATIVE)
[2024-02-21 14:39] LABS: Amphetamine Screen Urine Not Detected (Not Detect); Barbiturates, Urine Not Detected (Not Detect); Benzodiazepines Screen Urine Not Detected (Not Detect); Buprenorphine Scr Positive (Not Detect); Cannabinoid Screen Urine Not Detected (Not Detect); Cocaine Screen Urine POSITIVE (Not Detect); Fentanyl, urine Not Detected (Not Detect); Methadone Screen, Urine Not Detected (Not Detect); Opiate Screen Urine Not Detected (Not Detect); Oxycodone Screen Urine Not Detected (Not Detect); Phencyclidine Screen Urine Not Detected (Not Detect)
[2024-02-21] MEDS: Nicotine Polacrilex 2 MG GUM BUCCAL ×2 (15:38→20:58)
--- NOTE | 2024-02-21 15:40 | MHC.CARE ---
CARE Team assessment completed by Bertha Mejia. Refer to Assessment dated 12:57PM by Tabby Wang. Other Assessment is blank.
--- NOTE | 2024-02-21 16:09 | MHC.CARE ---
Duplicate assessments. Assessment was copied and pasted into assessment dated for 02/21/24 at 15:03 by Bertha Mejia. Please refer to assessment completed by Bertha Mejia. Left message for IT to erase other assessment.
[2024-02-21 16:46] LABS: Alanine Aminotransferase 23 U/L (0-31); Albumin Level 3.8 g/dL (3.5-5.0); Alkaline Phosphatase 50 U/L (39-117); Anion Gap 13 (12-20); Aspartate Amino Transferase 24 U/L (5-31); Bilirubin Total 0.3 mg/dL (0.0-1.0); Blood Urea Nitrogen 12 mg/dL (9-16); Calcium 8.9 mg/dL (8.4-10.2); Carbon Dioxide 21 mmol/L (22-29); Chloride 109 mmol/L (96-108); Creatinine Clr Calc Pharmacy 98.2; Estimated Glomerular Filt Rate > 60; Ethanol < 10 mg/dL; Glucose Random 106 mg/dL (60-115); Potassium 4.4 mmol/L (3.3-5.1); Sodium 139 mmol/L (135-145); Total Protein 6.7 g/dL (6.5-8.0)
[2024-02-21 17:16] LABS: Basophils Percent Auto 0.4 % (0-2); Eosinophils Absolute Auto 0.1 X10*3/uL (0.0-0.4); Eosinophils Percent Auto 0.7 % (0-4); Hematocrit 37.9 % (37.0-47.0); Hemoglobin 12.8 g/dl (12.0-16.0); Imm Gran Abs Auto 0.03 X10*3/uL (0.00-0.03); Imm Gran Pct Auto 0.4 % (0.0-0.4); Lymphocytes Absolute Auto 1.9 X10*3/uL (1.2-4.9); Lymphocytes Percent Auto 26.5 % (20-40); Mean Corpuscular HGB Conc 33.8 g/dl (31.0-35.0); Mean Corpuscular Hemoglobin 29.8 pg (27.0-33.0); Mean Corpuscular Volume 88.1 fL (80.0-98.0); Mean Platelet Volume 8.9 fL (9.4-12.3); Monocytes Absolute Auto 0.5 X10*3/uL (0.1-1.2); Monocytes Percent Auto 6.3 % (2-11); Neutrophils Absolute Auto 4.8 x10*3/uL (2.0-8.3); Neutrophils Percent Auto 65.7 % (45-73); Platelet Count 248 X10*3/uL (160-400); Red Cell Distribution Width 13.4 % (11.0-16.0); White Blood Count 7.3 X10*3/uL (4.8-10.8)
[2024-02-21 18:00] VITALS: BP 108/52; PULSE 73; RESP 15; TEMP 36.7; O2SAT 99
[2024-02-21 20:23] VITALS: BP 112/71; PULSE 96; RESP 16; TEMP 36.6; O2SAT 98
[2024-02-21 22:07] VITALS: BP 98/59; PULSE 92; RESP 16; TEMP 36.9; O2SAT 97
--- NOTE | 2024-02-22 05:57 | PC.NURSE ---
pt resting comfortably throughout the night, breathing even and unlabored, no apparent distress, calm and cooperative when awake, sitter at bedside
[2024-02-22 06:40] VITALS: BP 102/57; PULSE 69; RESP 16; TEMP 36.7; O2SAT 97
[2024-02-22] MEDS: LORazepam 1 MG TABLET 2 MG PO ×2 (10:29→14:42)
--- NOTE | 2024-02-22 11:46 | PHA.MEDREC ---
Pharmacy Consult ? Medication Reconciliation Pharmacy has completed the medication reconciliation Spoke to pt to confirm meds. .
[2024-02-22] MEDS: Gabapentin 400 MG CAPSULE 800 MG PO ×3 (12:02→20:10)
[2024-02-22] MEDS: Buprenorphine/Naloxone 8/2 mg FILM 2 FILM SUBLINGUAL (12:03)
[2024-02-22] MEDS: Nicotine Polacrilex 2 MG GUM BUCCAL ×2 (14:43→19:27)
[2024-02-22 16:55] VITALS: BP 108/61
[2024-02-22] MEDS: cloNIDine HCL 0.2 MG TABLET PO (16:55)
[2024-02-22] MEDS: hydrOXYzine HCL 25 MG TABLET PO (16:56)
[2024-02-22 17:26] VITALS: BP 93/54; PULSE 87; RESP 18; TEMP 36.7; O2SAT 97
--- NOTE | 2024-02-22 19:35 | PC.NURSE ---
Patient alert and oriented x4, calm and cooperative. Patient denies SI/HI at this time. Patient reports mild generalized pain 3/10 at present. This RN offered patient Tylenol, patient refused. CIWA assessment completed, score 5. Patient requested sun butter jelly sandwich, miryam yosef, pudding-provided and tolerated well. Patient also medicated with Nicorette gum. Patient currently resting in stretcher bed, all needs met, 1:1 sitter at bedside.
[2024-02-22] MEDS: Amphetamine Mixed Salts 20 MG TABLET PO (20:09)
[2024-02-22] MEDS: Buprenorphine/Naloxone 8/2 mg FILM 1 FILM SUBLINGUAL (20:10)
[2024-02-22] MEDS: clonazePAM 0.5 MG TABLET PO (20:10)
[2024-02-22] MEDS: Melatonin 3 MG TABLET 9 MG PO (20:10)
[2024-02-22 22:59] VITALS: BP 90/55; PULSE 83; RESP 16; TEMP 36.6; O2SAT 97
--- NOTE | 2024-02-23 | ECG_ITS ---
Test Reason : BASELINE QT Blood Pressure : / mmHG Vent. Rate : 099 BPM Atrial Rate : 099 BPM P-R Int : 128 ms QRS Dur : 080 ms QT Int : 354 ms P-R-T Axes : 035 028 029 degrees QTc Int : 454 ms Normal sinus rhythm Normal ECG No previous ECGs available Referred By: Peggy Ashley Electronically Signed By:MAGGIE RANDLE
[2024-02-23] MEDS: LORazepam 1 MG TABLET 2 MG PO (04:07)
[2024-02-23 06:45] VITALS: BP 97/48; PULSE 91; RESP 16; TEMP 36.7; O2SAT 97
[2024-02-23] MEDS: Topiramate 25 MG TABLET 50 MG PO (08:46)
[2024-02-23] MEDS: clonazePAM 0.5 MG TABLET PO ×2 (08:46→20:40)
[2024-02-23] MEDS: Buprenorphine/Naloxone 8/2 mg FILM 2 FILM SUBLINGUAL (08:47)
[2024-02-23] MEDS: OLANZapine 5 MG TABLET PO (08:47)
--- NOTE | 2024-02-23 09:11 | PC.NURSE ---
Pt. moved from ED 6 to 1 per propellant charge zone assembler. Report given to Naa Medina RN
[2024-02-23] MEDS: Amphetamine Mixed Salts 20 MG TABLET PO (09:34)
[2024-02-23] MEDS: Gabapentin 400 MG CAPSULE 800 MG PO ×4 (09:34→20:41)
[2024-02-23] MEDS: Nicotine Polacrilex 2 MG GUM BUCCAL (09:45)
[2024-02-23] MEDS: Lurasidone HCl 40 MG TABLET 120 MG PO (10:31)
[2024-02-23 18:05] VITALS: BP 118/77; PULSE 111; RESP 20; TEMP 36.6; O2SAT 95
[2024-02-23] MEDS: cloNIDine HCL 0.2 MG TABLET PO (18:09)
[2024-02-23] MEDS: Buprenorphine/Naloxone 8/2 mg FILM 1 FILM SUBLINGUAL (20:40)
[2024-02-23] MEDS: Clotrimazole 1 % Vaginal Cream 45 GM TUBE 1 APPL VAGINAL (20:42)
[2024-02-23] MEDS: Melatonin 3 MG TABLET 9 MG PO (20:52)
--- NOTE | 2024-02-24 06:23 | PC.NURSE ---
Patient slept through the night, no distress observed/reported, meds and meals compliant, disposition per care team is section 12 inpatient bed search, med rec completed, VSS, will continue to monitor
[2024-02-24] MEDS: cloNIDine HCL 0.2 MG TABLET PO ×2 (07:37→17:14)
[2024-02-24] MEDS: Nicotine Polacrilex 2 MG GUM BUCCAL (07:37)
[2024-02-24 08:03] VITALS: BP 114/74; PULSE 102; RESP 16; TEMP 36.2; O2SAT 95
[2024-02-24] MEDS: Buprenorphine/Naloxone 8/2 mg FILM 2 FILM SUBLINGUAL (08:26)
[2024-02-24] MEDS: Gabapentin 400 MG CAPSULE 800 MG PO ×4 (08:27→20:29)
[2024-02-24] MEDS: LORazepam 1 MG TABLET 2 MG PO ×2 (08:27→21:28)
[2024-02-24] MEDS: clonazePAM 0.5 MG TABLET PO ×2 (08:27→20:29)
[2024-02-24] MEDS: Amphetamine Mixed Salts 20 MG TABLET PO ×2 (08:27→16:34)
[2024-02-24] MEDS: Topiramate 25 MG TABLET 50 MG PO (08:27)
[2024-02-24] MEDS: OLANZapine 5 MG TABLET PO (08:28)
[2024-02-24] MEDS: Lurasidone HCl 40 MG TABLET 120 MG PO (10:06)
--- NOTE | 2024-02-24 11:35 | PC.NURSE ---
report to given to report to HILTON Romero on M3 at this time.
[2024-02-24 14:35] VITALS: BP 105/67; PULSE 114; RESP 18; TEMP 36.9; O2SAT 97; BMI 24.2
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
--- NOTE | 2024-02-24 15:59 | PC.NURSE ---
Patient does not want information given to the [facility] facility at this time.
[2024-02-24] MEDS: Nicotine 21 MG PATCH.TD24 TRANSDERMA (16:35)
[2024-02-24 17:12] VITALS: BP 112/78; PULSE 108
[2024-02-24] MEDS: Bacitracin Oint 14 GM TUBE 1 APPL TOPICAL (17:22)
[2024-02-24] MEDS: hydrOXYzine HCL 25 MG TABLET PO (19:25)
[2024-02-24 20:30] VITALS: BP 113/73; PULSE 102; RESP 18; TEMP 36.1; O2SAT 97
[2024-02-24] MEDS: Melatonin 3 MG TABLET 9 MG PO (20:31)
[2024-02-24 20:47] LABS: Alanine Aminotransferase 16 U/L (0-31); Alkaline Phosphatase 52 U/L (39-117); Anion Gap 13 (12-20); Aspartate Amino Transferase 22 U/L (5-31); Bilirubin Total 0.2 mg/dL (0.0-1.0); Blood Urea Nitrogen 24 mg/dL (9-16); Calcium 8.7 mg/dL (8.4-10.2); Carbon Dioxide 22 mmol/L (22-29); Chloride 106 mmol/L (96-108); Creatinine Clr Calc Pharmacy 100.8; Estimated Glomerular Filt Rate > 60; Glucose Random 117 mg/dL (60-115); Potassium 4.3 mmol/L (3.3-5.1); Sodium 137 mmol/L (135-145); Total Protein 6.9 g/dL (6.5-8.0)
[2024-02-24] MEDS: Buprenorphine/Naloxone 8/2 mg FILM 1 FILM SUBLINGUAL (20:53)
[2024-02-24] MEDS: Clotrimazole 1 % Vaginal Cream 45 GM TUBE 1 APPL VAGINAL (21:28)
[2024-02-25 02:16] VITALS: BP 106/61
[2024-02-25] MEDS: cloNIDine HCL 0.2 MG TABLET PO ×2 (02:16→17:37)
[2024-02-25] MEDS: Nicotine Polacrilex 2 MG GUM 4 MG BUCCAL ×3 (02:18→19:37)
[2024-02-25] MEDS: Gabapentin 400 MG CAPSULE 800 MG PO ×4 (08:41→20:28)
[2024-02-25] MEDS: Amphetamine Mixed Salts 20 MG TABLET PO ×2 (08:42→14:28)
[2024-02-25] MEDS: Topiramate 25 MG TABLET 50 MG PO (08:42)
[2024-02-25] MEDS: OLANZapine 5 MG TABLET PO (08:43)
[2024-02-25] MEDS: Lurasidone HCl 40 MG TABLET 120 MG PO (08:43)
[2024-02-25] MEDS: clonazePAM 0.5 MG TABLET PO ×2 (08:43→20:28)
[2024-02-25] MEDS: Nicotine 21 MG PATCH.TD24 TRANSDERMA (08:44)
[2024-02-25] MEDS: Buprenorphine/Naloxone 8/2 mg FILM 2 FILM SUBLINGUAL (08:58)
--- NOTE | 2024-02-25 09:13 | HO.PSYADMNOT ---
HPI Date of Service: 02/25/24 Chief Complaint: crisis Sources of Information: patient interviewed, chart reviewed and crisis/core team assessment reviewed HPI Subjective Notes: Knapp Warning and Conditional Voluntary Narrative: Patient is a 34-year-old female with history of MDD, PTSD, cocaine use disorder, opiate use disorder and alcohol use disorder who was brought in by ambulance to [facility] [place] [place] [facility] due to suicidal ideation with no plan secondary to medication noncompliance for the last few days. Per crisis report, patient was recently discharged from on 02/19/2024. Patient reports vague SI with no plan. Patient denies HI/AH/VH. Patient reports history of multiple detox admissions. She is receiving Suboxone. Patient reports having providers through [facility] in [place]. Prior to the admission on patient's last inpatient psychiatric hospitalization was at the age of 20 due to suicidal ideation but denies prior attempts. History of inconsistent engagement in outpatient therapy. U tox positive for cocaine and buprenorphine. During admission assessment, patient presents alert and oriented x3. Calm and cooperative. Patient stated, I'm here because I need some long-term help with my mental problems. I need to get myself out of homelessness. I need to get my life together. My meds are not the problem. I need to get into a program for substance treatment . Patient reports she smokes a gram of crack daily. She reports drinking a sleeve of alcohol for the last 4-5 months but states that her last drink has not been for 4 days. Patient denies SI/HI/VH/AH. Patient reports history of superficial cutting. Past Psychiatric History: History of psychiatric admissions Medical Evaluation Reviewed: Yes [facility] Medical History Alcohol use disorder Opioid use Cocaine use disorder PTSD (post-traumatic stress disorder) MDD (major depressive disorder), recurrent severe, without psychosis Homeless Family History: Mother: Depression Social History: Homeless. Single. No kids. Unemployed. Highest level of education completed 11th grade. Substance History: Patient reports she smokes a gram of crack daily. She reports drinking a sleeve of alcohol for the last 4-5 months but states that her last drink has not been for 4 days. Trauma History: Yes Diagnostics Vital Signs (24Hr): Vital Signs - 24 hr 02/24/24 14:35 02/24/24 17:12 02/24/24 20:30 Temperature 98.5 F 96.9 F Pulse Rate 114 H 108 H 102 H Respiratory Rate 18 18 Blood Pressure 105/67 112/78 113/73 Pulse Oximetry 97 97 Oxygen Delivery Method Room Air Room Air 02/25/24 02:16 Temperature Pulse Rate Respiratory Rate Blood Pressure 106/61 Pulse Oximetry Oxygen Delivery Method BMI result Body Mass Index 24.2 Labs 02/21/24 17:10 02/24/24 20:11 Labs: Laboratory Results - last 48 hr 02/24/24 20:11 Sodium 137 Potassium 4.3 Chloride 106 Carbon Dioxide 22 Anion Gap 13 BUN 24 H Creatinine 0.75 Estim Creat Clear Calc 100.8 Estimated GFR > 60 Random Glucose 117 H Calcium 8.7 Total Bilirubin 0.2 AST 22 ALT 16 Alkaline Phosphatase 52 Total Protein 6.9 Albumin 4.0 Meds/Allergies Meds Home Medications ?Medication ?Instructions ?Recorded ?Confirmed ?Type clonidine HCl 0.2 mg tablet 0.2 mg TID PRN Anxiety 02/13/24 02/22/24 History dextroamphetamine-amphetamine 20 20 mg PO BID 02/13/24 02/22/24 History mg tablet (Adderall) gabapentin 800 mg tablet 800 mg QID 02/13/24 02/22/24 History lurasidone 120 mg tablet (Latuda) 120 mg PO DAILY 02/13/24 02/22/24 History olanzapine 5 mg tablet 5 mg PO DAILY 02/13/24 02/22/24 History topiramate 50 mg tablet (Topamax) 50 mg PO DAILY 02/13/24 02/22/24 History melatonin 10 mg tablet 10 mg PO BEDTIME PRN Insomnia 02/21/24 02/22/24 History buprenorphine 8 mg-naloxone 2 mg 1 film sublingual BEDTIME 02/22/24 02/22/24 History sublingual film buprenorphine 8 mg-naloxone 2 mg 2 film sublingual DAILY 02/22/24 02/22/24 History sublingual film clonazepam 0.5 mg tablet 0.5 mg PO BID 02/22/24 02/22/24 History Allergies Allergies Allergy/AdvReac Type Severity Reaction Status Date / Time No Known Allergies Allergy Verified 02/21/24 12:46 Mental Status Exam Mental Status Exam Narrative: Pt is alert and oriented; behavior is cooperative, calm; dressed in casual attire; mood is described as depressed ; eye contact appropriate; Speech is normal rate, volume and not pressured; thought process is organized and goal directed; Thought content is on tx; otherwise pertinent to relevant topics and without any delusional content, paranoid ideations or grandiosity; denies SI/HI/VH/AH. Assessment & Plan Assessment & Plan (1) MDD (major depressive disorder), recurrent severe, without psychosis: Status: Acute Code(s): F33.2 - Major depressive disorder, recurrent severe without psychotic features (2) PTSD (post-traumatic stress disorder): Status: Acute Code(s): F43.10 - Post-traumatic stress disorder, unspecified (3) Cocaine use disorder: Status: Acute Code(s): F14.10 - Cocaine abuse, uncomplicated (4) Alcohol use disorder: Status: Acute Code(s): F10.90 - Alcohol use, unspecified, uncomplicated (5) Opioid use disorder: Status: Acute Code(s): F11.90 - Opioid use, unspecified, uncomplicated Plan Patient is a 34-year-old female with history of MDD, PTSD, cocaine use disorder, opiate use disorder and alcohol use disorder who was brought in by ambulance to [facility] [place] [place] [facility] due to suicidal ideation with no plan secondary to medication noncompliance for the last few days. Plan: CV 15 minute safety checks Continue home medications Encourage groups Referral to substance abuse program Discharge planning Patient educated on: diagnosis, medication risk/benefits and substance abuse Reason for continued inpatient stay Substantial Risk for: med/psych decompensation Statement Statement: I have reviewed the history and physical and performed a pertinent examination on my patient. No changes have occurred unless specified. If the History and Physical was not performed prior to admission, the Hospitalist's service will be consulted for completing the admission physical. Time Spent With Patient Time: Total time managing care of this patient today _60___ minutes.
--- NOTE | 2024-02-25 13:52 | MHC.CLN ---
RE: CONSULT HT 66 WT 68 KG (150#) IBW 130#+/-10% PT IS 115% IBW INDICATES OVER WT FOR HT; BMI 24.2 PT REPORTS SHE LOST 30# R/T POOR PO INTAKE PREVIOUS WT HX FOLLOWS: 68KG (02/24/24) 58.9KG (02/13/24) PT SHOWS 15% SIGNIFICANT WT GAIN SINCE LAST ADMISSION ON PSYCH UNIT PT STRUGGLING WITH ETOH, DRUG ABUSE AND HOMELESSNESS WHICH MAY BE CONTRIBUTING FACTORS FOR POSSIBLE WT LOSS APPETITE UPON ADMISSION IS GOOD; PT MAKES NEEDS KNOWN REGULAR DIET IN PLACE MONITOR PO INTAKE AND CONTINUE CURRENT CARE PLAN NO NEW ORDERS AT THIS TIME
[2024-02-25 14:44] VITALS: BP 113/73; PULSE 123; O2SAT 97
[2024-02-25 17:34] VITALS: BP 103/76; PULSE 120
[2024-02-25 20:00] VITALS: BP 116/79; PULSE 97; RESP 16; TEMP 36.3; O2SAT 97
[2024-02-25] MEDS: Buprenorphine/Naloxone 8/2 mg FILM 1 FILM SUBLINGUAL (20:28)
[2024-02-25] MEDS: hydrOXYzine HCL 25 MG TABLET PO (20:35)
[2024-02-25] MEDS: Melatonin 3 MG TABLET 9 MG PO (20:36)
[2024-02-26 02:56] VITALS: BP 104/75
[2024-02-26] MEDS: cloNIDine HCL 0.2 MG TABLET PO ×3 (02:56→20:15)
[2024-02-26] MEDS: hydrOXYzine HCL 25 MG TABLET PO ×3 (02:57→20:16)
[2024-02-26 08:00] VITALS: BP 101/70; PULSE 104; RESP 18; TEMP 36.7; O2SAT 99
--- NOTE | 2024-02-26 09:20 | P.PNPSI_ITS ---
Subjective Subjective Date of Service: 02/26/24 Reason For Visit: crisis Subjective Notes: Conditional Voluntary Interim History: Active on unit. social with peers. attending groups. Patient reports feeling anxious today d/t not knowing if I'll get a bed into a program . Patient reports she has been calling various places to see if they have open beds. She reports her assisted goal is to live in a sober home. pt requested increase in Topamax to assist in cravings. denies SI/HI/VH/AH. Increase Topamax to 50mg PO BID Medication Compliance: Yes Side effects from medications: No Attending Groups: Yes Review of Systems Constitutional: Reports as per HPI Eyes: Reports as per HPI Reports as per HPI Cardiovascular: Reports as per HPI Respiratory: Reports as per HPI Gastrointestinal: Reports as per HPI Musculoskeletal: Reports as per HPI Skin/Breast: Reports as per HPI Reports as per HPI Psychiatric: Reports as per HPI Endocrine: Reports as per HPI Hematologic/Lymphatic: Reports as per HPI Allergic/Immunologic: Reports as per HPI Mental Status Exam Mental Status Exam Narrative: Pt is alert and oriented; behavior is cooperative, calm; dressed in casual attire; mood is described as anxious ; eye contact appropriate; Speech is normal rate, volume and not pressured; thought process is organized and goal directed; Thought content is on tx; denies SI/HI/VH/AH. Diagnostics Vital Signs (24Hr): Vital Signs - 24 hr 02/25/24 14:44 02/25/24 17:34 02/25/24 20:00 Temperature 97.3 F Pulse Rate 123 H 120 H 97 Respiratory Rate 16 Blood Pressure 113/73 103/76 116/79 Pulse Oximetry 97 97 Oxygen Delivery Method Room Air Room Air 02/26/24 02:56 Temperature Pulse Rate Respiratory Rate Blood Pressure 104/75 Pulse Oximetry Oxygen Delivery Method BMI result Body Mass Index 24.2 Labs 02/21/24 17:10 02/24/24 20:11 Labs: Laboratory Results - last 48 hr 02/24/24 20:11 Sodium 137 Potassium 4.3 Chloride 106 Carbon Dioxide 22 Anion Gap 13 BUN 24 H Creatinine 0.75 Estim Creat Clear Calc 100.8 Estimated GFR > 60 Random Glucose 117 H Calcium 8.7 Total Bilirubin 0.2 AST 22 ALT 16 Alkaline Phosphatase 52 Total Protein 6.9 Albumin 4.0 Medications Medications Current Medications Acetaminophen (Acetaminophen 325 Mg Tablet) 650 mg PO Q6H PRN PRN Reason: Headache/Pain Mild Scale (1-3) Al Hydroxide/Mg Hydroxide (Magnesium Hydrox/Alum Hydrox 30 Ml Oral.Susp) 30 ml PO Q6H PRN PRN Reason: Heartburn/Nausea Amphetamine/Dextroamphetamine (Amphetamine Mixed Salts 20 Mg Tablet) 20 mg PO BID@0900,1400 [facility] Last Admin: 02/25/24 14:28 Dose: 20 mg Bacitracin (Bacitracin Oint 14 Gm Tube) 1 appl TOPICAL DAILY [facility]; Protocol Last Admin: 02/25/24 12:34 Dose: Not Given Buprenorphine/Naloxone (Buprenorphine/Naloxone 8/2 Mg Film) 2 film SUBLINGUAL DAILY [facility] Last Admin: 02/25/24 08:58 Dose: 2 film Buprenorphine/Naloxone (Buprenorphine/Naloxone 8/2 Mg Film) 1 film SUBLINGUAL BEDTIME [facility] Last Admin: 02/25/24 20:28 Dose: 1 film Clonazepam (Clonazepam 0.5 Mg Tablet) 0.5 mg PO BID [facility] Last Admin: 02/25/24 20:28 Dose: 0.5 mg Clonidine HCl (Clonidine Hcl 0.2 Mg Tablet) 0.2 mg PO TID PRN; Protocol PRN Reason: Anxiety Last Admin: 02/26/24 02:56 Dose: 0.2 mg Gabapentin (Gabapentin 400 Mg Capsule) 800 mg PO QID [facility] Last Admin: 02/25/24 20:28 Dose: 800 mg Hydroxyzine HCl (Hydroxyzine Hcl 25 Mg Tablet) 25 mg PO Q6H PRN PRN Reason: Anxiety Last Admin: 02/26/24 02:57 Dose: 25 mg Lurasidone HCl (Lurasidone Hcl 40 Mg Tablet) 120 mg PO DAILY [facility] Last Admin: 02/25/24 08:43 Dose: 120 mg Magnesium Hydroxide (Milk Of Magnesia 30 Ml Oral.Susp) 30 ml PO DAILY PRN PRN Reason: Constipation Melatonin (Melatonin 3 Mg Tablet) 9 mg PO BEDTIME PRN PRN Reason: Insomnia Last Admin: 02/25/24 20:36 Dose: 9 mg Nicotine (Nicotine 21 Mg Patch.Td24) 21 mg TRANSDERMA DAILY [facility] Last Admin: 02/25/24 08:44 Dose: 21 mg Nicotine Polacrilex (Nicotine Polacrilex 2 Mg Gum) 4 mg BUCCAL Q2H PRN PRN Reason: Nicotine Cravings Last Admin: 02/25/24 19:37 Dose: 4 mg Olanzapine (Olanzapine 5 Mg Tablet) 5 mg PO DAILY [facility] Last Admin: 02/25/24 08:43 Dose: 5 mg Topiramate (Topiramate 25 Mg Tablet) 50 mg PO DAILY [facility] Last Admin: 02/25/24 08:42 Dose: 50 mg Trazodone HCl (Trazodone Hcl 50 Mg Tablet) 50 mg PO BEDTIME MRX1 PRN PRN Reason: Insomnia Allergies Allergies Allergy/AdvReac Type Severity Reaction Status Date / Time No Known Allergies Allergy Verified 02/21/24 12:46 Assessment & Plan Assessment & Plan (1) MDD (major depressive disorder), recurrent severe, without psychosis: Status: Acute Code(s): F33.2 - Major depressive disorder, recurrent severe without psychotic features (2) PTSD (post-traumatic stress disorder): Status: Acute Code(s): F43.10 - Post-traumatic stress disorder, unspecified (3) Cocaine use disorder: Status: Acute Code(s): F14.10 - Cocaine abuse, uncomplicated (4) Alcohol use disorder: Status: Acute Code(s): F10.90 - Alcohol use, unspecified, uncomplicated (5) Opioid use disorder: Status: Acute Code(s): F11.90 - Opioid use, unspecified, uncomplicated Plan Patient is a 34-year-old female with history of MDD, PTSD, cocaine use disorder, opiate use disorder and alcohol use disorder who was brought in by ambulance to [facility] [place] [facility] due to suicidal ideation with no plan secondary to medication noncompliance for the last few days. Plan: CV 15 minute safety checks Continue home medications Encourage groups Referral to substance abuse program Discharge planning 02/25: Active on unit. social with peers. attending groups. Patient reports feeling anxious today d/t not knowing if I'll get a bed into a program . Patient reports she has been calling various places to see if they have open beds. She reports her joint terminal attack controller goal is to live in a sober home. pt requested increase in Topamax to assist in cravings. denies SI/HI/VH/AH. Increase Topamax to 50mg PO BID Patient educated on: diagnosis, medication risk/benefits and substance abuse Reason for continued inpatient stay Substantial Risk for: med/psych decompensation Time Spent With Patient Time: Total time managing care of this patient today _20___ minutes.
[2024-02-26] MEDS: Buprenorphine/Naloxone 8/2 mg FILM 2 FILM SUBLINGUAL (10:03)
[2024-02-26] MEDS: Nicotine 21 MG PATCH.TD24 TRANSDERMA (10:03)
[2024-02-26] MEDS: Topiramate 25 MG TABLET 50 MG PO ×2 (10:04→20:15)
[2024-02-26] MEDS: OLANZapine 5 MG TABLET PO (10:04)
[2024-02-26] MEDS: Gabapentin 400 MG CAPSULE 800 MG PO ×4 (10:04→20:15)
[2024-02-26] MEDS: clonazePAM 0.5 MG TABLET PO ×2 (10:04→20:15)
[2024-02-26] MEDS: Lurasidone HCl 40 MG TABLET 120 MG PO (10:05)
[2024-02-26] MEDS: Amphetamine Mixed Salts 20 MG TABLET PO ×2 (10:05→14:30)
--- NOTE | 2024-02-26 11:11 | MHC.RECOVRN ---
AUDIT-C Brief Intervention Pt had positive screen for unhealthy alcohol use on admission, subsequently met with t/w to discuss alcohol use and recovery supports/options. This sheet writer met with patient to discuss current alcohol use and concerns related to increased risk of alcohol related problems.? Pt reports that alcohol is not her ?drug of choice? but has experienced increased alcohol intake over the last 4-5 months.?? Pt did not see any negative effects physically or mentally from her alcohol use at this time. Withdrawal History:? None reported r/t alcohol Treatment History: Pt has attended treatment for polysubstance use numerous times.? She is currently attempting to get into [facility] program. Supports: Mother, assistant women's basketball coach. Discussed risk reduction strategies including drinking below the recommended limit. Provided pt with written resources including information on inpatient and outpatient treatment, YODIT, harm reduction, and recovery coaching. Pt plans to get accepted to [facility], continue suboxone, progress through continuum of care for recovery, increase/change meds for CUD, explore options for AUD. Pt provided with t/w contact information if questions or concerns arise. Denies other questions or concerns at this time.? Report was provided to ACS director re:? pt?s concern that crack is her ?drug of choice? and she does not feel her topamax is working.? Jenifer to contact pt?s provider to discuss.
[2024-02-26] MEDS: Acetaminophen 325 MG TABLET 650 MG PO ×2 (14:33→20:15)
[2024-02-26 14:34] VITALS: BP 105/67
[2024-02-26] MEDS: Nicotine Polacrilex 2 MG GUM 4 MG BUCCAL (16:53)
[2024-02-26 20:00] VITALS: BP 109/70; PULSE 106; RESP 18; TEMP 36.4; O2SAT 97
[2024-02-26] MEDS: Buprenorphine/Naloxone 8/2 mg FILM 1 FILM SUBLINGUAL (20:16)
[2024-02-27 08:00] VITALS: BP 103/69; PULSE 118; RESP 18; TEMP 36.7; O2SAT 99
--- NOTE | 2024-02-27 09:09 | HO.PSYCHPN ---
Subjective Subjective Date of Service: 02/27/24 Reason For Visit: crisis Subjective Notes: Conditional Voluntary Interim History: Active on unit, social with peers. attending groups. Patient continues to report feeling anxious today d/t waiting for bed at program. Pt reports if she is unable to obtain a bed then she will go to a alf. denies SI/HI/VH/AH. Medication Compliance: Yes Side effects from medications: No Attending Groups: Yes Review of Systems Constitutional: Reports as per HPI Eyes: Reports as per HPI Reports as per HPI Cardiovascular: Reports as per HPI Respiratory: Reports as per HPI Gastrointestinal: Reports as per HPI Musculoskeletal: Reports as per HPI Skin/Breast: Reports as per HPI Reports as per HPI Psychiatric: Reports as per HPI Endocrine: Reports as per HPI Hematologic/Lymphatic: Reports as per HPI Allergic/Immunologic: Reports as per HPI Mental Status Exam Mental Status Exam Narrative: Pt is alert and oriented; behavior is cooperative, calm; dressed in casual attire; mood is described as anxious ; eye contact appropriate; Speech is normal rate, volume and not pressured; thought process is organized and goal directed; Thought content is on tx; denies SI/HI/VH/AH. Diagnostics Vital Signs (24Hr): Vital Signs - 24 hr 02/26/24 14:34 02/26/24 20:00 Temperature 97.5 F Pulse Rate 106 H Respiratory Rate 18 Blood Pressure 105/67 109/70 Pulse Oximetry 97 Oxygen Delivery Method Room Air BMI result Body Mass Index 24.2 Labs 02/21/24 17:10 02/24/24 20:11 Medications Medications Current Medications Acetaminophen (Acetaminophen 325 Mg Tablet) 650 mg PO Q6H PRN PRN Reason: Headache/Pain Mild Scale (1-3) Last Admin: 02/26/24 20:15 Dose: 650 mg Al Hydroxide/Mg Hydroxide (Magnesium Hydrox/Alum Hydrox 30 Ml Oral.Susp) 30 ml PO Q6H PRN PRN Reason: Heartburn/Nausea Amphetamine/Dextroamphetamine (Amphetamine Mixed Salts 20 Mg Tablet) 20 mg PO BID@0900,1400 [facility] Last Admin: 02/26/24 14:30 Dose: 20 mg Bacitracin (Bacitracin Oint 14 Gm Tube) 1 appl TOPICAL DAILY [facility]; Protocol Last Admin: 02/26/24 10:28 Dose: Not Given Buprenorphine/Naloxone (Buprenorphine/Naloxone 8/2 Mg Film) 2 film SUBLINGUAL DAILY [facility] Last Admin: 02/26/24 10:03 Dose: 2 film Buprenorphine/Naloxone (Buprenorphine/Naloxone 8/2 Mg Film) 1 film SUBLINGUAL BEDTIME [facility] Last Admin: 02/26/24 20:16 Dose: 1 film Clonazepam (Clonazepam 0.5 Mg Tablet) 0.5 mg PO BID [facility] Last Admin: 02/26/24 20:15 Dose: 0.5 mg Clonidine HCl (Clonidine Hcl 0.2 Mg Tablet) 0.2 mg PO TID PRN; Protocol PRN Reason: Anxiety Last Admin: 02/26/24 20:15 Dose: 0.2 mg Gabapentin (Gabapentin 400 Mg Capsule) 800 mg PO QID [facility] Last Admin: 02/26/24 20:15 Dose: 800 mg Hydroxyzine HCl (Hydroxyzine Hcl 25 Mg Tablet) 25 mg PO Q6H PRN PRN Reason: Anxiety Last Admin: 02/26/24 20:16 Dose: 25 mg Lurasidone HCl (Lurasidone Hcl 40 Mg Tablet) 120 mg PO DAILY [facility] Last Admin: 02/26/24 10:05 Dose: 120 mg Magnesium Hydroxide (Milk Of Magnesia 30 Ml Oral.Susp) 30 ml PO DAILY PRN PRN Reason: Constipation Melatonin (Melatonin 3 Mg Tablet) 9 mg PO BEDTIME PRN PRN Reason: Insomnia Last Admin: 02/25/24 20:36 Dose: 9 mg Nicotine (Nicotine 21 Mg Patch.Td24) 21 mg TRANSDERMA DAILY [facility] Last Admin: 02/26/24 10:03 Dose: 21 mg Nicotine Polacrilex (Nicotine Polacrilex 2 Mg Gum) 4 mg BUCCAL Q2H PRN PRN Reason: Nicotine Cravings Last Admin: 02/26/24 16:53 Dose: 4 mg Olanzapine (Olanzapine 5 Mg Tablet) 5 mg PO DAILY [facility] Last Admin: 02/26/24 10:04 Dose: 5 mg Topiramate (Topiramate 25 Mg Tablet) 50 mg PO BID [facility] Last Admin: 02/26/24 20:15 Dose: 50 mg Trazodone HCl (Trazodone Hcl 50 Mg Tablet) 50 mg PO BEDTIME MRX1 PRN PRN Reason: Insomnia Allergies Allergies Allergy/AdvReac Type Severity Reaction Status Date / Time No Known Allergies Allergy Verified 02/21/24 12:46 Assessment & Plan Assessment & Plan (1) MDD (major depressive disorder), recurrent severe, without psychosis: Status: Acute Code(s): F33.2 - Major depressive disorder, recurrent severe without psychotic features (2) PTSD (post-traumatic stress disorder): Status: Acute Code(s): F43.10 - Post-traumatic stress disorder, unspecified (3) Cocaine use disorder: Status: Acute Code(s): F14.10 - Cocaine abuse, uncomplicated (4) Alcohol use disorder: Status: Acute Code(s): F10.90 - Alcohol use, unspecified, uncomplicated (5) Opioid use disorder: Status: Acute Code(s): F11.90 - Opioid use, unspecified, uncomplicated Plan Patient is a 34-year-old female with history of MDD, PTSD, cocaine use disorder, opiate use disorder and alcohol use disorder who was brought in by ambulance to [facility] [place] due to suicidal ideation with no plan secondary to medication noncompliance for the last few days. Plan: CV 15 minute safety checks Continue home medications Encourage groups Referral to substance abuse program Discharge planning 02/25: Active on unit. social with peers. attending groups. Patient reports feeling anxious today d/t not knowing if I'll get a bed into a program . Patient reports she has been calling various places to see if they have open beds. She reports her jail goal is to live in a sober home. pt requested increase in Topamax to assist in cravings. denies SI/HI/VH/AH. Increase Topamax to 50mg PO BID 02/26: Active on unit, social with peers. attending groups. Patient continues to report feeling anxious today d/t waiting for bed at program. Pt reports if she is unable to obtain a bed then she will go to a alf. denies SI/HI/VH/AH. Patient educated on: diagnosis, medication risk/benefits and therapeutic strategies Reason for continued inpatient stay Substantial Risk for: med/psych decompensation Time Spent With Patient Time: Total time managing care of this patient today _20___ minutes.
[2024-02-27] MEDS: Nicotine 21 MG PATCH.TD24 TRANSDERMA (10:24)
[2024-02-27] MEDS: clonazePAM 0.5 MG TABLET PO ×2 (10:25→21:17)
[2024-02-27] MEDS: Lurasidone HCl 40 MG TABLET 120 MG PO (10:25)
[2024-02-27] MEDS: Buprenorphine/Naloxone 8/2 mg FILM 2 FILM SUBLINGUAL (10:25)
[2024-02-27] MEDS: hydrOXYzine HCL 25 MG TABLET PO ×2 (10:26→17:39)
[2024-02-27] MEDS: Gabapentin 400 MG CAPSULE 800 MG PO ×4 (10:26→21:17)
[2024-02-27] MEDS: Topiramate 25 MG TABLET 50 MG PO ×2 (10:26→21:17)
[2024-02-27] MEDS: OLANZapine 5 MG TABLET PO (10:26)
[2024-02-27] MEDS: Amphetamine Mixed Salts 20 MG TABLET PO ×2 (10:26→14:20)
[2024-02-27] MEDS: Nicotine Polacrilex 2 MG GUM 4 MG BUCCAL ×3 (11:05→17:39)
[2024-02-27 14:19] VITALS: BP 101/67
[2024-02-27] MEDS: cloNIDine HCL 0.2 MG TABLET PO ×2 (14:19→21:37)
[2024-02-27 20:00] VITALS: BP 92/63; PULSE 100; RESP 16; TEMP 36.1; O2SAT 97
[2024-02-27] MEDS: Buprenorphine/Naloxone 8/2 mg FILM 1 FILM SUBLINGUAL (21:16)
[2024-02-27] MEDS: Acetaminophen 325 MG TABLET 650 MG PO (21:33)
[2024-02-27 21:37] VITALS: BP 97/70
--- NOTE | 2024-02-28 08:14 | HO.PSYCHPN ---
Subjective Subjective Date of Service: 02/28/24 Reason For Visit: crisis Subjective Notes: Conditional Voluntary Interim History: Pt slept through the night. She denies SI/HI. She has been sleeping most of the morning. She does report that she is anxious and wants to increase dose of clonazepam. however, concern was sedation with combination of all medications she is on. Review of Systems Review of Systems Constitutional : No Fever, No Chills ENT/Mouth : No Ear Pain, No Nasal Congestion, No sore throat Eyes: No Eye Pain, No Swelling, No Redness Cardiovascular : No Chest Pain, No SOB Respiratory : No Cough, No Sputum, No Dyspnea Gastrointestinal : No Nausea, No Vomiting, No Diarrhea, No Hematochezia, No Melena Genitourinary : No Dysuria, No Urinary Frequency, No Hematuria Musculoskeletal : No Myalgias Skin : No Skin Lesions, No rash Neuro : No Weakness, No Numbness, No Paresthesias, No Dizziness, No Headache Psych : positive Anxiety, positive Depression, positive SI no HI Heme/Lymph: No Lymphadenopathy Endocrine : No Polyuria, No Polydipsia All other systems reviewed and are negative Constitutional: Reports as per HPI Eyes: Reports as per HPI Reports as per HPI Cardiovascular: Reports as per HPI Respiratory: Reports as per HPI Gastrointestinal: Reports as per HPI Musculoskeletal: Reports as per HPI Skin/Breast: Reports as per HPI Reports as per HPI Psychiatric: Reports as per HPI Endocrine: Reports as per HPI Hematologic/Lymphatic: Reports as per HPI Allergic/Immunologic: Reports as per HPI Mental Status Exam Mental Status Exam Narrative: Pt is alert and oriented; behavior is cooperative, calm; dressed in casual attire; mood is described as anxious ; eye contact appropriate; Speech is normal rate, volume and not pressured; thought process is organized and goal directed; Thought content is on tx; denies SI/HI/VH/AH. Diagnostics Vital Signs (24Hr): Vital Signs - 24 hr 02/27/24 14:19 02/27/24 20:00 02/27/24 21:37 Temperature 97 F Pulse Rate 100 Respiratory Rate 16 Blood Pressure 101/67 92/63 97/70 Pulse Oximetry 97 Oxygen Delivery Method Room Air BMI result Body Mass Index 24.2 Labs 02/21/24 17:10 02/24/24 20:11 Medications Medications Current Medications Acetaminophen (Acetaminophen 325 Mg Tablet) 650 mg PO Q6H PRN PRN Reason: Headache/Pain Mild Scale (1-3) Last Admin: 02/27/24 21:33 Dose: 650 mg Al Hydroxide/Mg Hydroxide (Magnesium Hydrox/Alum Hydrox 30 Ml Oral.Susp) 30 ml PO Q6H PRN PRN Reason: Heartburn/Nausea Amphetamine/Dextroamphetamine (Amphetamine Mixed Salts 20 Mg Tablet) 20 mg PO BID@0900,1400 [facility] Last Admin: 02/27/24 14:20 Dose: 20 mg Bacitracin (Bacitracin Oint 14 Gm Tube) 1 appl TOPICAL DAILY [facility]; Protocol Last Admin: 02/27/24 10:43 Dose: Not Given Buprenorphine/Naloxone (Buprenorphine/Naloxone 8/2 Mg Film) 2 film SUBLINGUAL DAILY [facility] Last Admin: 02/27/24 10:25 Dose: 2 film Buprenorphine/Naloxone (Buprenorphine/Naloxone 8/2 Mg Film) 1 film SUBLINGUAL BEDTIME [facility] Last Admin: 02/27/24 21:16 Dose: 1 film Clonazepam (Clonazepam 0.5 Mg Tablet) 0.5 mg PO BID [facility] Last Admin: 02/27/24 21:17 Dose: 0.5 mg Clonidine HCl (Clonidine Hcl 0.2 Mg Tablet) 0.2 mg PO TID PRN; Protocol PRN Reason: Anxiety Last Admin: 02/27/24 21:37 Dose: 0.2 mg Gabapentin (Gabapentin 400 Mg Capsule) 800 mg PO QID [facility] Last Admin: 02/27/24 21:17 Dose: 800 mg Hydroxyzine HCl (Hydroxyzine Hcl 25 Mg Tablet) 25 mg PO Q6H PRN PRN Reason: Anxiety Last Admin: 02/27/24 17:39 Dose: 25 mg Lurasidone HCl (Lurasidone Hcl 40 Mg Tablet) 120 mg PO DAILY [facility] Last Admin: 02/27/24 10:25 Dose: 120 mg Magnesium Hydroxide (Milk Of Magnesia 30 Ml Oral.Susp) 30 ml PO DAILY PRN PRN Reason: Constipation Melatonin (Melatonin 3 Mg Tablet) 9 mg PO BEDTIME PRN PRN Reason: Insomnia Last Admin: 02/25/24 20:36 Dose: 9 mg Nicotine (Nicotine 21 Mg Patch.Td24) 21 mg TRANSDERMA DAILY [facility] Last Admin: 02/27/24 10:24 Dose: 21 mg Nicotine Polacrilex (Nicotine Polacrilex 2 Mg Gum) 4 mg BUCCAL Q2H PRN PRN Reason: Nicotine Cravings Last Admin: 02/27/24 17:39 Dose: 4 mg Olanzapine (Olanzapine 5 Mg Tablet) 5 mg PO DAILY [facility] Last Admin: 02/27/24 10:26 Dose: 5 mg Olanzapine (Olanzapine 5 Mg Tablet) 5 mg PO TID PRN PRN Reason: agitation Topiramate (Topiramate 25 Mg Tablet) 50 mg PO BID [facility] Last Admin: 02/27/24 21:17 Dose: 50 mg Trazodone HCl (Trazodone Hcl 50 Mg Tablet) 50 mg PO BEDTIME MRX1 PRN PRN Reason: Insomnia Allergies Allergies Allergy/AdvReac Type Severity Reaction Status Date / Time No Known Allergies Allergy Verified 02/21/24 12:46 Assessment & Plan Assessment & Plan (1) MDD (major depressive disorder), recurrent severe, without psychosis: Status: Acute Code(s): F33.2 - Major depressive disorder, recurrent severe without psychotic features (2) PTSD (post-traumatic stress disorder): Status: Acute Code(s): F43.10 - Post-traumatic stress disorder, unspecified (3) Cocaine use disorder: Status: Acute Code(s): F14.10 - Cocaine abuse, uncomplicated (4) Alcohol use disorder: Status: Acute Code(s): F10.90 - Alcohol use, unspecified, uncomplicated (5) Opioid use disorder: Status: Acute Code(s): F11.90 - Opioid use, unspecified, uncomplicated Plan Patient is a 34-year-old female with history of MDD, PTSD, cocaine use disorder, opiate use disorder and alcohol use disorder who was brought in by ambulance to [facility] due to suicidal ideation with no plan secondary to medication noncompliance for the last few days. Plan: CV 15 minute safety checks Continue home medications Encourage groups Referral to substance abuse program Discharge planning 02/25: Active on unit. social with peers. attending groups. Patient reports feeling anxious today d/t not knowing if I'll get a bed into a program . Patient reports she has been calling various places to see if they have open beds. 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 pt requested increase in Topamax to assist in cravings. denies SI/HI/VH/AH. Increase Topamax to 50mg PO BID 02/26: Active on unit, social with peers. attending groups. Patient continues to report feeling anxious today d/t waiting for bed at program. Pt reports if she is unable to obtain a bed then she will go to a assisted. denies SI/HI/VH/AH. 02/27 continue tx. Reason for continued inpatient stay Substantial Risk for: inability to function Time Spent With Patient Time: Total time managing care of this patient today ____ minutes.
[2024-02-28] MEDS: Buprenorphine/Naloxone 8/2 mg FILM 2 FILM SUBLINGUAL (08:41)
[2024-02-28] MEDS: OLANZapine 5 MG TABLET PO ×2 (08:41→21:18)
[2024-02-28] MEDS: Lurasidone HCl 40 MG TABLET 120 MG PO (08:41)
[2024-02-28] MEDS: Topiramate 25 MG TABLET 50 MG PO ×2 (08:41→20:29)
[2024-02-28] MEDS: Amphetamine Mixed Salts 20 MG TABLET PO ×2 (08:42→14:54)
[2024-02-28] MEDS: Gabapentin 400 MG CAPSULE 800 MG PO ×4 (08:42→20:24)
[2024-02-28] MEDS: clonazePAM 0.5 MG TABLET PO ×2 (08:42→20:24)
[2024-02-28] MEDS: Nicotine 21 MG PATCH.TD24 TRANSDERMA (08:44)
[2024-02-28 08:55] VITALS: BP 93/63; PULSE 88; RESP 14; TEMP 36.8; O2SAT 96
[2024-02-28] MEDS: hydrOXYzine HCL 25 MG TABLET PO ×2 (08:58→16:32)
[2024-02-28] MEDS: Milk of Magnesia 30 ML ORAL.SUSP PO (08:58)
[2024-02-28] MEDS: Acetaminophen 325 MG TABLET 650 MG PO ×2 (08:58→20:30)
[2024-02-28 13:19] VITALS: BP 108/64
[2024-02-28] MEDS: cloNIDine HCL 0.2 MG TABLET PO ×2 (13:20→20:30)
[2024-02-28] MEDS: Throat Lozenge, Medicated LOZENGE 1 LOZENGE MUCOUS MEM ×3 (14:58→19:51)
[2024-02-28] MEDS: Nicotine Polacrilex 2 MG GUM 4 MG BUCCAL (18:30)
[2024-02-28 19:35] VITALS: BP 112/74; PULSE 93; RESP 16; TEMP 37.7; O2SAT 96
[2024-02-28] MEDS: Melatonin 3 MG TABLET 9 MG PO (20:25)
[2024-02-28] MEDS: Buprenorphine/Naloxone 8/2 mg FILM 1 FILM SUBLINGUAL (20:37)
[2024-02-29 08:40] VITALS: BP 118/65; PULSE 97; TEMP 36.2; O2SAT 97
[2024-02-29] MEDS: Topiramate 25 MG TABLET 50 MG PO ×2 (08:42→21:18)
[2024-02-29] MEDS: clonazePAM 0.5 MG TABLET PO ×2 (08:42→21:17)
[2024-02-29] MEDS: Nicotine 21 MG PATCH.TD24 TRANSDERMA (08:42)
[2024-02-29] MEDS: Throat Lozenge, Medicated LOZENGE 1 LOZENGE MUCOUS MEM (08:43)
[2024-02-29] MEDS: Amphetamine Mixed Salts 20 MG TABLET PO ×2 (08:43→15:09)
[2024-02-29] MEDS: Gabapentin 400 MG CAPSULE 800 MG PO ×4 (08:43→21:18)
[2024-02-29] MEDS: Acetaminophen 325 MG TABLET 650 MG PO ×2 (08:43→19:39)
[2024-02-29] MEDS: Buprenorphine/Naloxone 8/2 mg FILM 2 FILM SUBLINGUAL (08:44)
[2024-02-29] MEDS: OLANZapine 5 MG TABLET PO (08:44)
[2024-02-29] MEDS: Lurasidone HCl 40 MG TABLET 120 MG PO (09:04)
--- NOTE | 2024-02-29 10:36 | P.PNPSI_ITS ---
Subjective Subjective Date of Service: 02/29/24 Reason For Visit: crisis Subjective Notes: Conditional Voluntary Interim History: Pt slept through the night. She reports having cold-like symptoms including congestion, sore throat, no fever, no respiratory distress. She denies SI/HI. Covid/flu/rsv test ordered and neg- added mucunex DM. Review of Systems Review of Systems Constitutional : No Fever, No Chills ENT/Mouth : No Ear Pain, No Nasal Congestion, No sore throat Eyes: No Eye Pain, No Swelling, No Redness Cardiovascular : No Chest Pain, No SOB Respiratory : No Cough, No Sputum, No Dyspnea Gastrointestinal : No Nausea, No Vomiting, No Diarrhea, No Hematochezia, No Melena Genitourinary : No Dysuria, No Urinary Frequency, No Hematuria Musculoskeletal : No Myalgias Skin : No Skin Lesions, No rash Neuro : No Weakness, No Numbness, No Paresthesias, No Dizziness, No Headache Psych : positive Anxiety, positive Depression, positive SI no HI Heme/Lymph: No Lymphadenopathy Endocrine : No Polyuria, No Polydipsia All other systems reviewed and are negative Constitutional: Reports as per HPI Eyes: Reports as per HPI Reports as per HPI Cardiovascular: Reports as per HPI Respiratory: Reports as per HPI Gastrointestinal: Reports as per HPI Musculoskeletal: Reports as per HPI Skin/Breast: Reports as per HPI Reports as per HPI Psychiatric: Reports as per HPI Endocrine: Reports as per HPI Hematologic/Lymphatic: Reports as per HPI Allergic/Immunologic: Reports as per HPI Mental Status Exam Mental Status Exam Narrative: Pt is alert and oriented x 3; behavior is cooperative, calm; dressed in casual attire; mood is described as sick ; eye contact appropriate; Speech is normal rate, volume and not pressured; thought process is organized and goal directed; Thought content is on tx; denies SI/HI/VH/AH. Diagnostics Vital Signs (24Hr): Vital Signs - 24 hr 02/28/24 13:19 02/28/24 19:35 02/29/24 08:40 Temperature 99.9 F 97.2 F Pulse Rate 93 97 Respiratory Rate 16 Blood Pressure 108/64 112/74 118/65 Pulse Oximetry 96 97 Oxygen Delivery Method Room Air Room Air BMI result Body Mass Index 24.2 Labs 02/21/24 17:10 02/24/24 20:11 Medications Medications Current Medications Acetaminophen (Acetaminophen 325 Mg Tablet) 650 mg PO Q6H PRN PRN Reason: Headache/Pain Mild Scale (1-3) Last Admin: 02/29/24 08:43 Dose: 650 mg Al Hydroxide/Mg Hydroxide (Magnesium Hydrox/Alum Hydrox 30 Ml Oral.Susp) 30 ml PO Q6H PRN PRN Reason: Heartburn/Nausea Amphetamine/Dextroamphetamine (Amphetamine Mixed Salts 20 Mg Tablet) 20 mg PO BID@0900,1400 [facility] Last Admin: 02/29/24 08:43 Dose: 20 mg Bacitracin (Bacitracin Oint 14 Gm Tube) 1 appl TOPICAL DAILY [facility]; Protocol Last Admin: 02/29/24 10:18 Dose: Not Given Benzocaine (Throat Lozenge, Medicated Lozenge) 1 lozenge MUCOUS MEM Q2H PRN PRN Reason: Sore Throat Last Admin: 02/29/24 08:43 Dose: 1 lozenge Buprenorphine/Naloxone (Buprenorphine/Naloxone 8/2 Mg Film) 2 film SUBLINGUAL DAILY [facility] Last Admin: 02/29/24 08:44 Dose: 2 film Buprenorphine/Naloxone (Buprenorphine/Naloxone 8/2 Mg Film) 1 film SUBLINGUAL BEDTIME [facility] Last Admin: 02/28/24 20:37 Dose: 1 film Clonazepam (Clonazepam 0.5 Mg Tablet) 0.5 mg PO BID [facility] Last Admin: 02/29/24 08:42 Dose: 0.5 mg Clonidine HCl (Clonidine Hcl 0.2 Mg Tablet) 0.2 mg PO TID PRN; Protocol PRN Reason: Anxiety Last Admin: 02/28/24 20:30 Dose: 0.2 mg Gabapentin (Gabapentin 400 Mg Capsule) 800 mg PO QID [facility] Last Admin: 02/29/24 08:43 Dose: 800 mg Hydroxyzine HCl (Hydroxyzine Hcl 25 Mg Tablet) 25 mg PO Q6H PRN PRN Reason: Anxiety Last Admin: 02/28/24 16:32 Dose: 25 mg Lurasidone HCl (Lurasidone Hcl 40 Mg Tablet) 120 mg PO DAILY [facility] Last Admin: 02/29/24 09:04 Dose: 120 mg Magnesium Hydroxide (Milk Of Magnesia 30 Ml Oral.Susp) 30 ml PO DAILY PRN PRN Reason: Constipation Last Admin: 02/28/24 08:58 Dose: 30 ml Melatonin (Melatonin 3 Mg Tablet) 9 mg PO BEDTIME PRN PRN Reason: Insomnia Last Admin: 02/28/24 20:25 Dose: 9 mg Nicotine (Nicotine 21 Mg Patch.Td24) 21 mg TRANSDERMA DAILY [facility] Last Admin: 02/29/24 08:42 Dose: 21 mg Nicotine Polacrilex (Nicotine Polacrilex 2 Mg Gum) 4 mg BUCCAL Q2H PRN PRN Reason: Nicotine Cravings Last Admin: 02/28/24 18:30 Dose: 4 mg Olanzapine (Olanzapine 5 Mg Tablet) 5 mg PO DAILY [facility] Last Admin: 02/29/24 08:44 Dose: 5 mg Olanzapine (Olanzapine 5 Mg Tablet) 5 mg PO TID PRN PRN Reason: agitation Last Admin: 02/28/24 21:18 Dose: 5 mg Topiramate (Topiramate 25 Mg Tablet) 50 mg PO BID [facility] Last Admin: 02/29/24 08:42 Dose: 50 mg Trazodone HCl (Trazodone Hcl 50 Mg Tablet) 50 mg PO BEDTIME MRX1 PRN PRN Reason: Insomnia Allergies Allergies Allergy/AdvReac Type Severity Reaction Status Date / Time No Known Allergies Allergy Verified 02/21/24 12:46 Assessment & Plan Assessment & Plan (1) MDD (major depressive disorder), recurrent severe, without psychosis: Status: Acute Code(s): F33.2 - Major depressive disorder, recurrent severe without psychotic features (2) PTSD (post-traumatic stress disorder): Status: Acute Code(s): F43.10 - Post-traumatic stress disorder, unspecified (3) Cocaine use disorder: Status: Acute Code(s): F14.10 - Cocaine abuse, uncomplicated (4) Alcohol use disorder: Status: Acute Code(s): F10.90 - Alcohol use, unspecified, uncomplicated (5) Opioid use disorder: Status: Acute Code(s): F11.90 - Opioid use, unspecified, uncomplicated Plan Patient is a 34-year-old female with history of MDD, PTSD, cocaine use disorder, opiate use disorder and alcohol use disorder who was brought in by ambulance to [facility] due to suicidal ideation with no plan secondary to medication noncompliance for the last few days. Plan: CV 15 minute safety checks Continue home medications Encourage groups Referral to substance abuse program Discharge planning 02/25: Active on unit. social with peers. attending groups. Patient reports feeling anxious today d/t not knowing if I'll get a bed into a program . Patient reports she has been calling various places to see if they have open beds. 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 pt requested increase in Topamax to assist in cravings. denies SI/HI/VH/AH. Increase Topamax to 50mg PO BID 02/26: Active on unit, social with peers. attending groups. Patient continues to report feeling anxious today d/t waiting for bed at program. Pt reports if she is unable to obtain a bed then she will go to a jail. denies SI/HI/VH/AH. 02/27 continue tx. 02/28 continue tx. Reason for continued inpatient stay Substantial Risk for: harm to self Time Spent With Patient Time: Total time managing care of this patient today ____ minutes.
[2024-02-29 14:36] LABS: Influenza A PCR NEGATIVE (Negative); Influenza B PCR NEGATIVE (Negative); Resp Syncy Virus RNA Qual PCR NEGATIVE (Negative); SARS COV2 PCR INHOUSE NEGATIVE (Negative)
[2024-02-29 18:08] VITALS: BP 124/68
[2024-02-29] MEDS: cloNIDine HCL 0.2 MG TABLET PO (18:08)
[2024-02-29] MEDS: Magnesium Hydrox/Alum Hydrox 30 ML ORAL.SUSP PO (18:11)
[2024-02-29] MEDS: Milk of Magnesia 30 ML ORAL.SUSP PO (18:14)
[2024-02-29] MEDS: hydrOXYzine HCL 25 MG TABLET PO (19:38)
[2024-02-29] MEDS: Nicotine Polacrilex 2 MG GUM 4 MG BUCCAL ×2 (19:39→21:33)
[2024-02-29 20:00] VITALS: BP 116/81; PULSE 117; RESP 16; TEMP 36.2; O2SAT 98
[2024-02-29] MEDS: guaiFENesin DM 600/30 1 TAB TAB.ER.12H PO ×2 (21:18→21:20)
[2024-02-29] MEDS: Buprenorphine/Naloxone 8/2 mg FILM 1 FILM SUBLINGUAL (21:18)
[2024-02-29] MEDS: Melatonin 3 MG TABLET 9 MG PO (21:20)
[2024-02-29] MEDS: traZODone HCL 50 MG TABLET PO (21:20)
[2024-03-01] MEDS: Nicotine 21 MG PATCH.TD24 TRANSDERMA (09:18)
[2024-03-01] MEDS: Topiramate 25 MG TABLET 50 MG PO ×2 (09:18→20:13)
[2024-03-01] MEDS: Lurasidone HCl 40 MG TABLET 120 MG PO (09:18)
[2024-03-01] MEDS: guaiFENesin DM 600/30 1 TAB TAB.ER.12H PO ×2 (09:19→20:11)
[2024-03-01] MEDS: Gabapentin 400 MG CAPSULE 800 MG PO ×4 (09:19→20:12)
[2024-03-01] MEDS: Buprenorphine/Naloxone 8/2 mg FILM 2 FILM SUBLINGUAL (09:19)
[2024-03-01] MEDS: clonazePAM 0.5 MG TABLET PO ×2 (09:19→16:59)
[2024-03-01] MEDS: Amphetamine Mixed Salts 20 MG TABLET PO ×2 (09:19→14:42)
[2024-03-01] MEDS: OLANZapine 5 MG TABLET PO ×2 (09:19→20:12)
[2024-03-01 09:20] VITALS: BP 103/69; PULSE 100; RESP 16; TEMP 36.5; O2SAT 98
[2024-03-01] MEDS: Acetaminophen 325 MG TABLET 650 MG PO ×2 (09:49→17:27)
--- NOTE | 2024-03-01 11:07 | HO.PSYCHPN ---
Subjective Subjective Date of Service: 03/01/24 Reason For Visit: crisis Subjective Notes: Conditional Voluntary Interim History: Active on unit, social with peers. Patient reports feeling anxious about leaving tomorrow; denies SI/HI/VH/AH. Focused on sobriety; pt stated, I called the [facility] and [facility]. I plan on going to [facility] in [place] when I leave here and try to get a bed . She reports sleeping well. Medication Compliance: Yes Side effects from medications: No Attending Groups: Yes Review of Systems Constitutional: Reports as per HPI Eyes: Reports as per HPI Reports as per HPI Cardiovascular: Reports as per HPI Respiratory: Reports as per HPI Gastrointestinal: Reports as per HPI Musculoskeletal: Reports as per HPI Skin/Breast: Reports as per HPI Reports as per HPI Psychiatric: Reports as per HPI Endocrine: Reports as per HPI Hematologic/Lymphatic: Reports as per HPI Allergic/Immunologic: Reports as per HPI Mental Status Exam Mental Status Exam Narrative: Pt is alert and oriented; behavior is cooperative, friendly and calm; dressed in casual attire; mood is described as anxious ; eye contact appropriate; Speech is normal rate, volume and not pressured; thought process is organized and goal directed; Thought content is on tx; denies SI/HI/VH/AH. Diagnostics Vital Signs (24Hr): Vital Signs - 24 hr 02/29/24 18:08 02/29/24 20:00 03/01/24 09:20 Temperature 97.2 F 97.7 F Pulse Rate 117 H 100 Respiratory Rate 16 16 Blood Pressure 124/68 116/81 103/69 Pulse Oximetry 98 98 Oxygen Delivery Method Room Air Room Air BMI result Body Mass Index 24.2 Labs 02/21/24 17:10 02/24/24 20:11 Labs: Laboratory Results - last 48 hr 02/29/24 13:50 Influenza Type A (PCR) NEGATIVE Influenza Type B (PCR) NEGATIVE RSV RNA Qual (PCR) NEGATIVE SARS-CoV-2 RNA (RT-PCR) NEGATIVE Medications Medications Current Medications Acetaminophen (Acetaminophen 325 Mg Tablet) 650 mg PO Q6H PRN PRN Reason: Headache/Pain Mild Scale (1-3) Last Admin: 03/01/24 09:49 Dose: 650 mg Al Hydroxide/Mg Hydroxide (Magnesium Hydrox/Alum Hydrox 30 Ml Oral.Susp) 30 ml PO Q6H PRN PRN Reason: Heartburn/Nausea Last Admin: 02/29/24 18:11 Dose: 30 ml Amphetamine/Dextroamphetamine (Amphetamine Mixed Salts 20 Mg Tablet) 20 mg PO BID@0900,1400 [facility] Last Admin: 03/01/24 09:19 Dose: 20 mg Bacitracin (Bacitracin Oint 14 Gm Tube) 1 appl TOPICAL DAILY [facility]; Protocol Last Admin: 02/29/24 10:18 Dose: Not Given Benzocaine (Throat Lozenge, Medicated Lozenge) 1 lozenge MUCOUS MEM Q2H PRN PRN Reason: Sore Throat Last Admin: 02/29/24 08:43 Dose: 1 lozenge Buprenorphine/Naloxone (Buprenorphine/Naloxone 8/2 Mg Film) 2 film SUBLINGUAL DAILY [facility] Last Admin: 03/01/24 09:19 Dose: 2 film Buprenorphine/Naloxone (Buprenorphine/Naloxone 8/2 Mg Film) 1 film SUBLINGUAL BEDTIME [facility] Last Admin: 02/29/24 21:18 Dose: 1 film Clonazepam (Clonazepam 0.5 Mg Tablet) 0.5 mg PO BID [facility] Last Admin: 03/01/24 09:19 Dose: 0.5 mg Clonidine HCl (Clonidine Hcl 0.2 Mg Tablet) 0.2 mg PO TID PRN; Protocol PRN Reason: Anxiety Last Admin: 02/29/24 18:08 Dose: 0.2 mg Gabapentin (Gabapentin 400 Mg Capsule) 800 mg PO QID [facility] Last Admin: 03/01/24 09:19 Dose: 800 mg Guaifenesin/Dextromethorphan (Guaifenesin Dm 600/30 1 Tab Tab.Er.12h) 1 tab PO BID [facility] Last Admin: 03/01/24 09:19 Dose: 1 tab Hydroxyzine HCl (Hydroxyzine Hcl 25 Mg Tablet) 25 mg PO Q6H PRN PRN Reason: Anxiety Last Admin: 02/29/24 19:38 Dose: 25 mg Lurasidone HCl (Lurasidone Hcl 40 Mg Tablet) 120 mg PO DAILY [facility] Last Admin: 03/01/24 09:18 Dose: 120 mg Magnesium Hydroxide (Milk Of Magnesia 30 Ml Oral.Susp) 30 ml PO DAILY PRN PRN Reason: Constipation Last Admin: 02/29/24 18:14 Dose: 30 ml Melatonin (Melatonin 3 Mg Tablet) 9 mg PO BEDTIME PRN PRN Reason: Insomnia Last Admin: 02/29/24 21:20 Dose: 9 mg Nicotine (Nicotine 21 Mg Patch.Td24) 21 mg TRANSDERMA DAILY [facility] Last Admin: 03/01/24 09:18 Dose: 21 mg Nicotine Polacrilex (Nicotine Polacrilex 2 Mg Gum) 4 mg BUCCAL Q2H PRN PRN Reason: Nicotine Cravings Last Admin: 02/29/24 21:33 Dose: 4 mg Olanzapine (Olanzapine 5 Mg Tablet) 5 mg PO DAILY [facility] Last Admin: 03/01/24 09:19 Dose: 5 mg Olanzapine (Olanzapine 5 Mg Tablet) 5 mg PO TID PRN PRN Reason: agitation Last Admin: 02/28/24 21:18 Dose: 5 mg Topiramate (Topiramate 25 Mg Tablet) 50 mg PO BID [facility] Last Admin: 03/01/24 09:18 Dose: 50 mg Trazodone HCl (Trazodone Hcl 50 Mg Tablet) 50 mg PO BEDTIME MRX1 PRN PRN Reason: Insomnia Last Admin: 02/29/24 21:20 Dose: 50 mg Allergies Allergies Allergy/AdvReac Type Severity Reaction Status Date / Time No Known Allergies Allergy Verified 02/21/24 12:46 Assessment & Plan Assessment & Plan (1) MDD (major depressive disorder), recurrent severe, without psychosis: Status: Acute Code(s): F33.2 - Major depressive disorder, recurrent severe without psychotic features (2) PTSD (post-traumatic stress disorder): Status: Acute Code(s): F43.10 - Post-traumatic stress disorder, unspecified (3) Cocaine use disorder: Status: Acute Code(s): F14.10 - Cocaine abuse, uncomplicated (4) Alcohol use disorder: Status: Acute Code(s): F10.90 - Alcohol use, unspecified, uncomplicated (5) Opioid use disorder: Status: Acute Code(s): F11.90 - Opioid use, unspecified, uncomplicated Plan Patient is a 34-year-old female with history of MDD, PTSD, cocaine use disorder, opiate use disorder and alcohol use disorder who was brought in by ambulance to [facility] due to suicidal ideation with no plan secondary to medication noncompliance for the last few days. Plan: CV 15 minute safety checks Continue home medications Encourage groups Referral to substance abuse program Discharge planning 02/25: Active on unit. social with peers. attending groups. Patient reports feeling anxious today d/t not knowing if I'll get a bed into a program . Patient reports she has been calling various places to see if they have open beds. She reports her prison goal is to live in a sober home. pt requested increase in Topamax to assist in cravings. denies SI/HI/VH/AH. Increase Topamax to 50mg PO BID 02/26: Active on unit, social with peers. attending groups. Patient continues to report feeling anxious today d/t waiting for bed at program. Pt reports if she is unable to obtain a bed then she will go to a long term. denies SI/HI/VH/AH. 02/27 continue tx. 02/28 continue tx. 03/01: Active on unit, social with peers. Patient reports feeling anxious about leaving tomorrow; denies SI/HI/VH/AH. Focused on sobriety; pt stated, I called the [facility] and [facility]. I plan on going to [facility] in [place] when I leave here and try to get a bed . She reports sleeping well. Patient educated on: diagnosis and medication risk/benefits Reason for continued inpatient stay Substantial Risk for: stable for discharge Time Spent With Patient Time: Total time managing care of this patient today _20___ minutes.
[2024-03-01 13:08] VITALS: BP 118/76
[2024-03-01] MEDS: cloNIDine HCL 0.2 MG TABLET PO ×2 (13:08→20:12)
[2024-03-01] MEDS: Throat Lozenge, Medicated LOZENGE 1 LOZENGE MUCOUS MEM (14:46)
[2024-03-01] MEDS: Nicotine Polacrilex 2 MG GUM 4 MG BUCCAL (15:23)
[2024-03-01] MEDS: hydrOXYzine HCL 25 MG TABLET PO (17:27)
[2024-03-01 20:00] VITALS: BP 106/78; PULSE 106; RESP 16; TEMP 36.9; O2SAT 98
[2024-03-01] MEDS: traZODone HCL 50 MG TABLET PO (20:12)
[2024-03-01] MEDS: Milk of Magnesia 30 ML ORAL.SUSP PO (20:13)
[2024-03-01] MEDS: Buprenorphine/Naloxone 8/2 mg FILM 1 FILM SUBLINGUAL (20:14)
[2024-03-02 07:47] VITALS: BP 96/52; PULSE 76; RESP 16; TEMP 36.6; O2SAT 96
--- NOTE | 2024-03-02 09:00 | PM.PSYDC ---
DS: Providers Provider Date of Service: 03/02/24 Date of admission: 02/24/24 11:07 Date of discharge: 03/02/24 Primary care physician: Unknown Physician Admitting clinician: Elly Fuller Attending physician on admission: Ranjith Paniagua Consults: 02/24/24 15:16 Addiction Medicine Routine Consulting Provider: Addiction Covering Reason for consultation: auto populated based on audit Has provider been notified: Yes Attending physician on discharge: Ranjith Paniagua Discharging clinician: Elly Fuller DS: Diagnosis Discharge Diagnosis (1) MDD (major depressive disorder), recurrent severe, without psychosis: Status: Acute (2) PTSD (post-traumatic stress disorder): Status: Acute (3) Cocaine use disorder: Status: Acute (4) Alcohol use disorder: Status: Acute (5) Opioid use disorder: Status: Acute DS: Medications Discharge Medications Home Medications: Previous Rx's ?Medication ?Instructions ?Recorded buprenorphine 8 mg-naloxone 2 mg 1 film sublingual BEDTIME 7 days 03/02/24 sublingual film (Suboxone) #7 ea buprenorphine 8 mg-naloxone 2 mg 2 film sublingual DAILY 7 days #14 03/02/24 sublingual film (Suboxone) ea clonazepam 0.5 mg tablet 0.5 mg PO BID 14 days #28 tabs 03/02/24 clonidine HCl 0.2 mg tablet 0.2 mg PO TID PRN Anxiety 30 days 03/02/24 #90 tabs dextroamphetamine-amphetamine 20 20 mg PO BID@0900,1400 7 days #14 03/02/24 mg tablet tabs gabapentin 800 mg tablet 800 mg PO QID 30 days #120 tabs 03/02/24 hydroxyzine HCl 25 mg tablet 25 mg PO TID PRN Anxiety 30 days 03/02/24 #90 tabs lurasidone 120 mg tablet 120 mg PO DAILY 30 days #30 tabs 03/02/24 melatonin 10 mg tablet 10 mg PO BEDTIME PRN Insomnia 30 03/02/24 days #30 tabs olanzapine 5 mg tablet 5 mg PO DAILY 30 days #30 tabs 03/02/24 topiramate 50 mg tablet 50 mg PO BID 30 days #60 tabs 03/02/24 Mental Status Exam Mental Status Exam Narrative: Pt is alert and oriented; behavior is cooperative, friendly and calm; dressed in casual attire; mood is described as good ; eye contact appropriate; Speech is normal rate, volume and not pressured; thought process is organized and goal directed; Thought content is on tx; denies SI/HI/VH/AH. Data Data Completed and Pending Completed studies during hospitalization [Text1]: 02/24/24 02/29/24 20:11 13:50 Sodium 137 Potassium 4.3 Chloride 106 Carbon Dioxide 22 Anion Gap 13 BUN 24 H Creatinine 0.75 Estim Creat Clear Calc 100.8 Estimated GFR > 60 Random Glucose 117 H Calcium 8.7 Total Bilirubin 0.2 AST 22 ALT 16 Alkaline Phosphatase 52 Total Protein 6.9 Albumin 4.0 Influenza Type A (PCR) NEGATIVE Influenza Type B (PCR) NEGATIVE RSV RNA Qual (PCR) NEGATIVE SARS-CoV-2 RNA (RT-PCR) NEGATIVE DS: Summary Hospital Course Hospital Course: Patient is a 34-year-old female with history of MDD, PTSD, cocaine use disorder, opiate use disorder and alcohol use disorder who was brought in by ambulance to [facility] ER due to suicidal ideation with no plan secondary to medication noncompliance for the last few days. Per crisis report, patient was recently discharged from on 02/19/2024. Patient reports vague SI with no plan. Patient denies HI/AH/VH. Patient reports history of multiple detox admissions. She is receiving Suboxone. Patient reports having providers through [facility] [email or web address] [facility] in [place]. Prior to the admission on patient's last inpatient psychiatric hospitalization was at the age of 20 due to suicidal ideation but denies prior attempts. History of inconsistent engagement in outpatient therapy. U tox positive for cocaine and buprenorphine. During admission assessment, patient presents alert and oriented x3. Calm and cooperative. Patient stated, I'm here because I need some long-term help with my mental problems. I need to get myself out of homelessness. I need to get my life together. My meds are not the problem. I need to get into a program for substance treatment . Patient reports she smokes a gram of crack daily. She reports drinking a sleeve of alcohol for the last 4-5 months but states that her last drink has not been for 4 days. Patient denies SI/HI/VH/AH. Patient reports history of superficial cutting. Plan: CV 15 minute safety checks Continue home medications Encourage groups Referral to substance abuse program Discharge planning Active on unit. social with peers. attending groups. Patient reports feeling anxious today d/t not knowing if I'll get a bed into a program . Patient reports she has been calling various places to see if they have open beds. She reports her custodial goal is to live in a sober home. pt requested increase in Topamax to assist in cravings. denies SI/HI/VH/AH. Increase Topamax to 50mg PO BID Active on unit, social with peers. attending groups. Patient continues to report feeling anxious today d/t waiting for bed at program. Pt reports if she is unable to obtain a bed then she will go to a custodial. denies SI/HI/VH/AH. Active on unit, social with peers. Patient reports feeling anxious about leaving tomorrow; denies SI/HI/VH/AH. Focused on sobriety; pt stated, I called the [facility] and [facility]. I plan on going to [facility] in [place] when I leave here and try to get a bed . She reports sleeping well. Patient reports feeling good today; she reports feeling happy she was able to get a bed at [facility]. denies SI/HI/VH/AH. Time spent discussing smoking cessation with patient: 3 to 10 minutes Status at Discharge Cognitive/behavioral status at discharge: Patient has insight and demonstrates good judgment in terms of wanting to pursue treatment. Patient has a safety plan that includes presenting to the closest ER or calling 911 if feeling unsafe. Functional status at discharge: independent ambulation Overall status at discharge: patient is back to baseline Time Spent with Patient Time attestation: Total time managing care of this patient today _20___ minutes. Time spent: Less than 30 minutes Discharge Plan Discharge Anticipated Discharge Date/Time: 03/02/24 11:00 Patient Disposition: [facility] Discharge Diagnosis: MDD, PTSD, alcohol use d/o, opioid use d/o, cocaine use d/o Referrals: Patricia Suh / [facility] [Other] - 03/04/24 8:40 am (03-01-24 Your follow up appt has been scheduled with Patricia Suh on 03-04-24 @ 8:40am. Fax tn: [phone]) Discharge Medications: New dextroamphetamine-amphetamine 20 mg Tablet 20 mg PO BID@0900,1400 7 Days Qty: 14 0RF Rx Instructions: Partial Fill upon patient request. gabapentin 800 mg tablet 800 mg PO QID 30 Days Qty: 120 0RF hydroxyzine HCl 25 mg Tablet 25 mg PO TID PRN (Reason: Anxiety) 30 Days Qty: 90 0RF lurasidone 120 mg tablet 120 mg PO DAILY 30 Days Qty: 30 0RF Rx Instructions: must administer with food (at least 350 calories) olanzapine 5 mg Tablet 5 mg PO DAILY 30 Days Qty: 30 0RF topiramate 50 mg tablet 50 mg PO BID 30 Days Qty: 60 0RF buprenorphine-naloxone [Suboxone] 8-2 mg Film 1 film sublingual BEDTIME 7 Days Qty: 7 0RF buprenorphine-naloxone [Suboxone] 8-2 mg Film 2 film sublingual DAILY 7 Days Qty: 14 0RF Continued clonazepam 0.5 mg tablet 0.5 mg PO BID 14 Days Qty: 28 0RF melatonin 10 mg Tablet 10 mg PO BEDTIME PRN (Reason: Insomnia) 30 Days Qty: 30 0RF Changed clonidine HCl 0.2 mg Tablet 0.2 mg PO TID PRN (Reason: Anxiety) 30 Days Qty: 90 0RF Discontinued olanzapine 5 mg Tablet 5 mg PO DAILY Patient Comments: Per [facility] - day supply last filled 12/23 gabapentin 800 mg Tablet 800 mg QID Patient Comments: Per [facility] - last filled 02/04 dextroamphetamine-amphetamine [Adderall] 20 mg Tablet 20 mg PO BID Patient Comments: Pt reports she takes at 0900 and 1500 Rx Instructions: administer doses at least 4-6 hours apart topiramate [Topamax] 50 mg Tablet 50 mg PO DAILY Patient Comments: Per [facility] - 14 day supply last filled 02/02 lurasidone [Latuda] 120 mg Tablet 120 mg PO DAILY Patient Comments: Per [facility] - 30 day supply last filled 02/05 Rx Instructions: must administer with food (at least 350 calories) clotrimazole 1 % Cream 1 appl vaginal BEDTIME 5 Days Qty: 45 0RF Rx Instructions: END DATE: 02/24/24 hydroxyzine HCl 25 mg Tablet 25 mg PO Q6H PRN (Reason: Anxiety) 30 Days Qty: 60 0RF buprenorphine-naloxone 8-2 mg film 2 film sublingual DAILY buprenorphine-naloxone 8-2 mg film 1 film sublingual BEDTIME Discharge Orders: Discharge Order (Routine); Ordered 03/02/24 Ordered By: Elly Fuller Diet: Regular diet Activity on Discharge: As tolerated Stand Alone Forms: Patient Portal Discharge page, Community Support Print Language: Marshallese Care Plan Goals: Maintain mood and safe behaviors Take medications as prescribed Continue to pursue sobriety Practice coping skills Continue with outpatient providers and reach out to them as needed Health Concerns: Mood stability and behaviors Sobriety Plan of Treatment: Follow up with your PCP, psychiatric provider and other outpatient providers regarding above concerns Take medications as prescribed Assessment: Patient has insight and demonstrates good judgment in terms of wanting to pursue treatment. Patient has a safety plan that includes presenting to the closest ER or calling 911 if feeling unsafe. Discharge Date/Time: 03/02/24 11:30
[2024-03-02] MEDS: Gabapentin 400 MG CAPSULE 800 MG PO (09:25)
[2024-03-02] MEDS: Topiramate 25 MG TABLET 50 MG PO (09:25)
[2024-03-02] MEDS: OLANZapine 5 MG TABLET PO (09:26)
[2024-03-02] MEDS: Lurasidone HCl 40 MG TABLET 120 MG PO (09:26)
[2024-03-02] MEDS: guaiFENesin DM 600/30 1 TAB TAB.ER.12H PO (09:26)
[2024-03-02] MEDS: Nicotine 21 MG PATCH.TD24 TRANSDERMA (09:26)
[2024-03-02] MEDS: Amphetamine Mixed Salts 20 MG TABLET PO (09:26)
[2024-03-02] MEDS: clonazePAM 0.5 MG TABLET PO (09:26)
[2024-03-02] MEDS: Nicotine Polacrilex 2 MG GUM 4 MG BUCCAL (09:29)
[2024-03-02] MEDS: Naloxone HCl Nasal TAKE HOME 4 MG SPRAY 8 MG NOSTRILALT (09:32)
[2024-03-02] MEDS: Buprenorphine/Naloxone 8/2 mg FILM 2 FILM SUBLINGUAL (09:32)
[2024-03-02 10:44] VITALS: BP 114/72; PULSE 112
[2024-03-02] MEDS: hydrOXYzine HCL 25 MG TABLET PO (10:46)
[2024-03-02] MEDS: Acetaminophen 325 MG TABLET 650 MG PO (10:46)
[2024-03-02] MEDS: cloNIDine HCL 0.2 MG TABLET PO (10:47)
== END 2024-03-02 11:30 | disposition home or self-care (01) | DRG 751 ==
LOC: HO.ED 02-24 07:47 → HO.PADLT16 02-24 12:37
PROVIDERS: Physician Assistant Medical; Social Worker; Admitting Provider Registered Nurse; Emergency Provider Emergency Medicine Emergency Medical Services; Responsible Provider Registered Nurse; Visit Provider Psychiatry & Neurology Psychiatry
DX: F33.2 Major depressive disorder, recurrent severe without psychotic features (principal); R45.851 Suicidal ideations; Z91.148 Patient's other noncompliance with medication regimen for other reason; Z59.02 Unsheltered homelessness; F43.10 Post-traumatic stress disorder, unspecified; F14.10 Cocaine abuse, uncomplicated; F10.90 Alcohol use, unspecified, uncomplicated; F11.20 Opioid dependence, uncomplicated; F17.210 Nicotine dependence, cigarettes, uncomplicated; Z71.6 Tobacco abuse counseling; Z20.822 Contact with and (suspected) exposure to COVID-19; Z79.899 Other long term (current) drug therapy
CPT/HCPCS: 0241U; 36415; 80053; 80307; 81003; 81025; 85025; 93005; 99285; S9485

== ENCOUNTER → 2024-02-23 08:38 | Outpatient (BNV) | payer OTHER, SELFPAY | PROVIDERS: Emergency Provider Emergency Medicine; Visit Provider Internal Medicine | DX: I45.81 Long QT syndrome (principal) | CPT/HCPCS: 93010 ==

== ENCOUNTER → 2024-02-24 11:07 | Outpatient (BNV) | payer OTHER, SELFPAY | PROVIDERS: Admitting Provider Registered Nurse; Emergency Provider Emergency Medicine Emergency Medical Services; Responsible Provider Registered Nurse; Visit Provider Registered Nurse | DX: F33.2 Major depressive disorder, recurrent severe without psychotic features (principal); F14.10 Cocaine abuse, uncomplicated; F10.90 Alcohol use, unspecified, uncomplicated; F43.11 Post-traumatic stress disorder, acute; F11.90 Opioid use, unspecified, uncomplicated | CPT/HCPCS: 90792; 99231; 99232; 99238 ==